=== PATIENT | female | born 1955 | race Caucasian/White ===

== ENCOUNTER 2022-11-13 11:13 | Outpatient (OUT) | payer MEDICARE, OTHER, SELFPAY ==
--- NOTE | 2022-11-13 11:27 | XR_ITS ---
The [address] [address] Patient Name: LILIANA NESBITT MRN: [id number] date: 1955 Sex: F Assigned Patient Location: [facility] Current Patient Location: [facility] Accession/Order Number: [id number] Exam Date: 11/13/2022 11:32 Report Date: 11/13/2022 13:02 At the request of: DESTINY BLANCO Procedure: XR knee RT 4V PROCEDURE: XR knee RT 4V HISTORY: Right Knee Pain M25.561 ; acute right knee pain following injury COMPARISON: None. FINDINGS: BONES:Mild narrowing of the medial and anterior joint spaces. Degenerative osteophytes along the articular margins of all 3 compartments. No fracture, dislocation, bone lesion. SOFT TISSUES:No visible soft tissue swelling. EFFUSION:None visible. OTHER: Negative. XR/XR knee RT 4V IMPRESSION: 1. No acute bone abnormality or joint effusion. 2. Mild/moderate degenerative joint disease. Electronically authenticated by: ALINE PATHAK Date: 11/13/2022 13:02
== END 2022-11-13 11:14 | disposition home or self-care (01) ==
LOC: RAD 11:20
PROVIDERS: PCP Family Medicine; Visit Provider Family Medicine
DX: M25.561 Pain in right knee (principal)
CPT/HCPCS: 73564

== ENCOUNTER 2023-05-04 14:00 | Outpatient (OUT) | payer MEDICARE, OTHER, SELFPAY | END 2023-05-04 14:01 | disposition home or self-care (01) | LOC: LAB 14:02 | PROVIDERS: PCP Family Medicine; Visit Provider Family Medicine | DX: R30.0 Dysuria (principal) | CPT/HCPCS: 87086; 87150; 87186 ==

== ENCOUNTER 2024-10-18 14:17 | Outpatient (OUT) | payer MEDICARE, OTHER, SELFPAY ==
--- NOTE | 2024-10-18 14:24 | XR_ITS ---
The [place] [id number] Patient Name: LILIANA NESBITT MRN: [id number] date: 1955 Sex: F Assigned Patient Location: [facility] Current Patient Location: [facility] Accession/Order Number: [id number] Exam Date: 10/18/2024 17:36 Report Date: 10/18/2024 17:38 At the request of: DESTINY BLANCO MD Procedure: XR lumbar spine 2-3V 3 views Lumbar Spine HISTORY: Lumbar pain for 3 days. No injury COMPARISON: None POSTSURGICAL CHANGES: None BONY ALIGNMENT: Adequate HYPERMOBILITY:No bending imaging. LISTHESIS:4 mm L4-5 anterolisthesis FRACTURE: None DEGENERATIVE CHANGES: Spondylosis greatest at the L5-S1 level. Extensive lower lumbar facet degeneration SOFT TISSUES: Atherosclerosis BONY MINERALIZATION:Decreased XR/XR lumbar spine 2-3V IMPRESSION: Extensive degeneration greatest in the lower lumbar facets. Impression dictated by: Phillip Guaman M.D. 10/18/2024 5:38 PM Dictation Location[facility] Electronically authenticated by: [id number] Y Date: 10/18/2024 17:38
== END 2024-10-18 14:18 | disposition home or self-care (01) ==
LOC: RAD 14:19
PROVIDERS: PCP Family Medicine; Visit Provider Family Medicine
DX: M54.50 Low back pain, unspecified (principal); M47.816 Spondylosis without myelopathy or radiculopathy, lumbar region; M51.369 Other intervertebral disc degeneration, lumbar region without mention of lumbar back pain or lower extremity pain
CPT/HCPCS: 72100

== ENCOUNTER 2025-02-08 09:53 | Outpatient (OUT) | payer MEDICARE, OTHER, SELFPAY ==
--- OUTSIDE RECORDS SUMMARY | 2025-02-03 19:07 | XMS_ITS | Continuity of Care Document ---
Author Organization [facility] Address [address] [place] [address] Phone Care Team Providers Care Locum Tenens Name Role Phone Margaret Bhandari MD Primary Care Provider Margaret Bhandari MD Attending Provider [phone] Community, Outreach Attending Provider [phone] Care Teams Patient Care Team Team Status: Active Member Role/Relationship Status Dates Margaret Bhandari MD Primary Care Provider Active Visit Care Team Team Status: Inactive Member Role/Relationship Status Dates Margaret Bhandari MD Primary Care Provider Active Start: December 19, 2024 End: December 19, 2024Jaiden Nichols ProviderActiveStart: December 19, 2024 End: December 19, 2024 Visit Care Team Team Status: Inactive Member Role/Relationship Status Dates Margaret Bhandari MD Primary Care Provider Active Start: January 02, 2025 End: January 02, 2025Jaiden Nichols ProviderActiveStart: January 02, 2025 End: January 02, 2025 Visit Care Team Team Status: Inactive Member Role/Relationship Status Dates Margaret Bhandari MD Primary Care Provider Active Start: January 14, 2025 End: January 14, 2025Outremoises CommunityAttending ProviderActiveStart: January 14, 2025 End: January 14, 2025 Visit Care Team Team Status: Inactive Member Role/Relationship Status Dates Margaret Bhandari MD Primary Care Provider Active Start: January 20, 2025 End: January 20, 2025Margaret Bhandari MDAttending ProviderActiveStart: January 20, 2025 End: January 20, 2025 Visit Care Team Team Status: Inactive Member Role/Relationship Status Dates Margaret Bhandari MD Primary Care Provider Active Start: February 03, 2025 End: February 03, 2025Jaiden Nichols ProviderActiveStart: February 03, 2025 End: February 03, 2025 Chief Complaint and Reason for Visit Chief Complaint Admit Date Give sample for poss UTI December 19, 025 9:48am Z12.31 January 02, 2025 3 :34pm CBC January 14, 2025 7:54am Wellness January 20, 2025 9:24am R10.13 N32.81 N81.9 February 03, 2025 1 0:28am Reason for Visit Admit Date Dysuria December 19, 2024 9 :48am Epigastric abdominal pain January 20, 2025 9:24am Medicare annual wellness visit, subseque nt January 20, 2025 9:24am Overactive bladder due to prolapse of fe male genital organ January 20, 2025 9:24am Allergies, Adverse Reactions, Alerts Allergen Type Severity Reaction Last Updated Verified Status Comments Iodinated Contrast Media Allergy Unknown Unknown Reaction January 20, 2025 9:46am Yes Active Onset Date: 06/01/2014 Sulfa (Sulfonamide Antibiotics) Allergy Unknown stomach upset January 20, 2025 9:46am Yes Active Social History Smoking Status Status Start Date End Date Date of Observa tion Never smoked tobacco (finding) February 25, 2023 10:13am Observation Status Observation Response Date of Response Legal Sex Female (finding) [facility] 1955 Family History Relationship Condition Age at Onset Recorded Date/T fatuma father Heart disease Unknown DeceasedUnknownmotherMalignant neoplasmUnknown Problems Active Problems Problem Diagnosis/Recorded Date Onset Date Stat us Eyelid abnormality March 31, 2024 2:35pm Unknown Active Overactive bladder due to pr olapse of female genital organ January 20, 2025 10:16am Unknown Active Medicare annual wellness vis it, subsequent January 24, 2025 4:07pm Unknown Active Primary osteoarthritis of right hip April 22 10:42am Unknown Active Screening mammogram for breast cancer December 09 8:05am Unknown Active Ovarian cyst April 22, 2023 10:42am Unknown Active Hearing loss June 08, 2024 10:11am Unknown Acti ve Chronic insomnia August 17, 2023 3:42pm Unknown A ctive Mass of both axillae April 23, 2023 11:48am Unkno wn Active Dysuria May 04, 2023 1:38pm Unknown Activ e Epigastric abdominal pain January 20, 2025 10:14am Unknown Active Acute lumbar back pain October 18, 2024 12:46pm Unkno wn Active Breast mass, right August 31, 2023 9:18am Unknown Active Inactive/Resolved Problems Problem Diagnosis/Recorded Date Onset Date Stat us Sinusitis, acute maxillary August 17, 2023 3:42pm Unkn own Resolved Medications Medication Status Dose Units Route Directions Qty Days Refills S tart Date Stop Date End Date Reason(s) Instructions Adherence Cefdinir 300 mg capsule Discontinued 300 MG PO Twice daily 20 10 0 May 07, 2023 12:00am August 17, 2023 12:52pmCiprofloxacin Hcl 250 mg uuyxsuHeddbsylykca646FPYCAjzgj qmhhg089Tmvjqiqa 2023 12:00amMah 2023 8:48amMethylprednisolone 4 mg tablets,dose owlgTdwjalsjospa7QAwgj package rhvajfggbw658Opuae 2024 10:08am October 18, 2024 12:26pmPO PER PKG DIR for 6 daysCiprofloxacin Hcl 250 mg iehhngBwiyynuidzow430COMFWvuun hkmsk243Sypobzu 2024 11:00pmNovember 2024 9:46amNo Name (No Known Home Meds)ActiveNov2024 12:00am Azithromycin 250 mg ggpmknYzjowdrfvhjt3CO.HQEMTZB91Jpmu 2023 11:00pm March 31, 2024 10:31amFor 250 mg dose pack: take 500 mg today (day 1), then 250 mg for 4 days (days 2-5) POPhentermine 37.5 mg zxyrsmWgraqfgdjjsq97.5MGPO DailyJanuary 2024 12:00amAugust 2024 12:26pmmust administer 30 minutes before or 1-2 hours after breakfastMethylprednisolone 4 mg tablets,dose hljoFvudseyrfzav2CVgih package rpaocrawxd491Rpdohbw 2024 12:00amApril 2024 9:59amPO PER PKG DIR for 6 daysPrednisone 20 mg srxaxpWqapcybnpouu26XWPS Twice zdtyw104Gykafb 2024 11:00pmNov2024 9:46am Procedures Procedure Date Performed Status MM screening mammo BI w/CAD January 02, 2025 3 :37pm completed CT abdomen pelvis wo con February 03, 2025 10:3 3am completed Relevant Diagnostic Tests and/or Laboratory Data Laboratory Results Test Collection Date/Time Result Date/Time Result Interpretation Reference Range Result Comment Performing Site Urine Color December 19, 2024 9:16am December 19, 2024 9 :20am yellow Urine AppearanceOct2024 9:16amOct2024 9:20amclearUrine Specific GravityOct2024 9:16amOct2024 9:20am1.000Urine pH December 19, 2024 9:16amOct2024 9:38zg2Dgbki Leukocyte Esterase December 19, 2024 9:16amOct2024 9:20am++Urine NitriteOct2024 9:16amOct2024 9:20amNegativeUrine ProteinOct2024 9:16amOctober 2024 9:20amnegativeUrine Glucose (UA)December 19, 2024 9:16amOct2024 9:20amnegativeUrine KetonesOct2024 9:16am December 19, 2024 9:20amnegativeUrine UrobilinogenOct2024 9:16am December 19, 2024 9:20am0.2Urine BilirubinOct2024 9:16amOct2024 9:20amnegativeUrine Occult BloodOct2024 9:16amOct2024 9:20amnegativeCorrected White Blood CountJanuary 14, 2025 7:50am January 14, 2025 11:07am5.4 10*3/uL3.8-11.6F[facility] [id number] [address] [place] [address]Ogb Blood CountJanuary 14, 2025 7:50amNove2024 11:07am4.82 10*6/uL3.60-5.00[facility] [id number] [address] [facility] [address]XassmsvlftGeassimh 2024 7:50amNovember 2024 11:07am 13.0 g/dL11.8-15.4FSub[facility] [id number] [address] [facility] [address]TirdadnnuuHxcyuuqv 2024 7:50amNoveer 2024 11:07am 40.3 %34.0-46.4FSub[facility] [id number] [address] [facility] [address]Tvfw Corpuscular VolumeNovember 2024 7:50amNovember 2024 11:07am83.5 bT55-828WvckqdytuCincinnati Va [facility] [id number] [address] [facility] [address]Lbyb Corpuscular HemoglobinNovember 2024 7:50amNovember 2024 11:07am27.0 pg24.7-34.3FSub[facility] [id number] [address] [place] [address]Nhtl Corpuscular Hemoglobin ConcentNovember 2024 7:50am January 14, 2025 11:07am32.3 g/dL32.0-35.0[facility] [id number] [address] [facility] [address]Gkm Cell Distribution WidthNov2024 7:50amNove2024 11:07am15.5 %Above high gyxlhn67.9-15.3FSub[facility] [id number] [address] [facility] [address]Lhyslqqh CountNovember 2024 7:50amNove2024 11:20pr712 10*3/yF194-685KepsalsmfCincinnati [facility] [id number] [address] [place] [address]Nwwr Platelet VolumeNovember 2024 7:50amNove2024 11:07am7.5 fL6.3-10.7FSub[facility] [id number] [address] [facility] [address]Nfjzdch LevelNovember 2024 7:50amNove2024 11:13am99 mg/aJ14-101POY recommended reference rangeRandom Glucose Reference Range is dependent on time and content of last meal. Glucose of more than 200 mg/dL in a nonstressed, ambulatory subject supports the diagnosisof Diabetes Mellitus.[facility] [id number] [address] [facility] [address]Tqtdb Urea NitrogenNovember 2024 7:50amNove2024 11:13am13 mg/dL7-25[facility] [id number] [address] [facility] [address]FmaofdmuyrFoiimcvj 15th, 2025 7:50amNove2024 11:13am 0.82 mg/dL0.60-1.20[facility] [id number] [address] [facility] [address]Jgulkxbxz GFR (CKD-EPI)January 14, 2025 7:50amNove2024 11:13am> 60.0 mL/MinCincinnati Va Medical Center [facility]tr [id number] [address] [facility] [address]Nvbwyt LevelNov2024 7:50amNovember 2024 11:06qc322 mmol/B785-215YszrqqmubCincinnati Va [facility] [id number] [address] [facility] [address]Xjmfbzdeb LevelNov2024 7:50amNove2024 11:13am4.6 mmol/L3.5-5.1FSub[facility] [id number] [address] [facility] [address]Waihzlvl LevelNov2024 7:50amNove2024 11:38sy787 mmol/G40-984LwtmvzvspCincinnati Va [facility] [id number] [address] [place] [address]87[address]Carbon Dioxide LevelNov2024 7:50amNove2024 11:13am28.9 mmol/L21.0-31.0[facility] [id number] [address] [facility] [address]Hftnh GapNovember 2024 7:50amNovember 2024 11:13am 9.7 mEq/L6.0-15.0[facility] [id number] [address] [facility] [address]Apovvkl LevelNovember 2024 7:50amNovemb2024 11:13am8.9 mg/dL8.6-10.3FSub[facility] [id number] [address] [facility] 17[address]Yadmj ProteinNovember 2024 7:50amNove2024 11:13am7.0 g/dL6.4-8.9[facility] [id number] [address] [facility] 12[address]XnmwsylTpbgolri 2024 7:50amNovember 2024 11:13am4.3 g/dL3.5-5.7FSub[facility] [id number] [address] [place] [address] 38[address]Ecqwp BilirubinNov2024 7:50amNove2024 11:13am0.4 mg/dL0.3-1.0[facility] [id number] [address] [facility] [address]Wfmhbzqra Amino Transf (AST/SGOT)January 14, 2025 7:50am January 14, 2025 11:13am30 U/S86-97AbcpnqdesCincinnati Va [facility] [id number] [address] [place] [address] 99432Wqyvrno Aminotransferase (ALT/SGPT)January 14, 2025 7:50am January 14, 2025 11:13am27 U/L7-52[facility] [id number] [address] [place] [address] 66644Jdgnatsr PhosphataseJanuary 14, 2025 7:50amNovemb2024 11:13am76 U/L91-472ReqaboxkvCincinnati Va [facility] Center [facility] [id number] [address] [place] [address] 64[address]Wxsrlbufzig LevelNov2024 7:50amNove2024 11:27hs236 mg/dLAbove high culbci797-490Jwad less than 200 mg/dl low riskChol 201-239 mg/dl borderline riskChol 240 mg/dl and greater high riskCincinnati Va Medical Center [facility]tr [id number] [address] [facility] [address]AFK CholesterolNovember 2024 7:50amNovemb2024 11:13am39 mg/uI09-04SFZ CHOL ATP-III CLASSIFICATION Cardiovascular RiskHDL > or equal to 60 mg/dL LOWHDL < 40 mg/dL HIGHCincinnati Va Medical Center Ctr [id number] [address] [facility] [address]Khjzpgoslcpwn ReflexNov2024 7:50amNove2024 11:63fi034 mg/dLAbove high normal0-149TRIG ATP III CLASSIFICATIONTRIG less than 150 mg/dL NormalTRIG 150-199 mg/dL Borderline highTRIG 200-500 mg/dL High TRIG greater than 500 mg/dL Very highStandard traceable to the Center for Disease Conrtrol and Prevention (CDC) test method.[facility] [id number] [address] [facility] [address]HDY Cholesterol, CalculatedNov2024 7:50amNove2024 11:54lj094 mg/dLAbove high normal0-100LDL ATP III CLASSIFICATIONLDL less than 100 mg/dL OptimalLDL 100-129 mg/dL Near or above uzgaqbnXYS837-381 mg/dL Borderline highLDL 160-189 mg/dL HighLDL greater than 189 mg/dL Very high [facility] [id number] [address] [facility] 29893ULRV CholesterolNov2024 7:50amNove2024 11:13am33 mg/dLCincinnati Va Medical Center Ctr [id number] [address] [facility] [address]Xnpyekrwqan/HDL RatioNove2024 7:50amN2024 11:13am5.6<5.0[facility] [id number] [address] [facility] 808[address]Rtijannn Creatinine Clearance (ChemNovember 2024 7:50am January 14, 2025 11:13[facility] [id number] [address] [place] [address] Diagnostic Imaging Reports Author Oli Friend [facility] HospitalReport Date/TimeDece2024 12:17pm [facility] [place] [address] [place] [address] Scan Report Signed Patient: Yohana Jacob MR#: [id number] : 1955 Acct:[id number] Age/Sex: 69 / F ADM Date: Loc: CT Room: Type: [facility] Attending Dr: Margaret Bhandari MD Copies to: Margaret Bhandari MD~ Ordering Provider: Margaret Bhandari MD Date of Service: 02/03/25 CT/CT abdomen pelvis wo con: R10.13 - Epigastric pain CT ABDOMEN AND PELVIS WITHOUT INTRAVENOUS CONTRAST: CLINICAL HISTORY: Mid upper abdominal pain for 2 months. COMPARISON: None TECHNIQUE: Spiral images were obtained through the abdomen and pelvis without intravenous contrast.This CT exam was performed using one or more following dose reduction techniques: Automated exposure control, adjustment of the mA and/or kV according to patient size, or use of iterative reconstruction technique. FINDINGS: Lung Bases: [Bibasilar scarring.] Organs:Suboptimal evaluation due to lack of IV contrast. Hepatic steatosis. Gallbladder pancreas spleen adrenal glands all appear unremarkable. Cystic changes involving the kidneys. Aorta appears normal in caliber. GI: Small hiatal hernia. Distal stomach is grossly unremarkable. Duodenal diverticulum. Small bowelappears nondilated. Appendix is normal. Acute colonic abnormality.[ Pelvis:[Suboptimal evaluation due to streak hardware artifact from the patient's right hip prosthesis. There appears be a 9 mm layering calculus involving the urinary bladder. Uterus has been removed.] Peritoneum/Retroperitoneum:No free air or free fluid or lymphadenopathy.[ Abd wall/Bones:Abdominal wall demonstrate no acute findings. Osseous structures demonstrate degenerative change.[ CT/CT abdomen pelvis wo con IMPRESSION: No acute process. Suspected 9 mm calculus involving the urinary bladder. Small hiatal hernia. Impression dictated by: Oli Friend Jr., D.OGhassan 02/03/2025 12:17 PM Dictation Location: RADIO-PC-22 Transcribed By: MARYLU 02/03/25 1217 Dictated By: Oli Friend Jr, DO 02/03/25 1214 Signed By: <Electronically signed by Oli Friend Jr, DO in OV> 02/03/25 1217 Vital Signs Vital Reading Result Reference Range Collection Date/Time Height 69 [in_i] January 20, 2025 9:76ifNxkwzm75.55 kgJanuary 20, 2025 9:46amHeart Rate75 /tqb34-223NtxmlkikJanuary 20, 2025 9:46amRespiratory rate14 /ffx36-30AjgyuqbnJanuary 20, 2025 9:46amOxygen saturation by Pulse fnsbrufd31 %95-100January 20, 2025 9:46amBP Dzxtjrng444 mm[Hg]100-140January 20, 2025 9:46amBP Gdknvikrb60 mm[Hg]60-100January 20, 2025 9:46amBMI (Body Mass Index)26.9 kg/x4BhzxypgiJanuary 20, 2025 9:46am Advance Directives Advance Directive Response Recorded Date/ Time Advance Directives No March 23, 2023 12:04pm Insurance Providers Guarantor Yohana Jacob Address [address] [address]Uyenkmx Info.Home Phone: Payer Group Member ID Coverage Type Subscriber Relationship to Subscriber Effective Date Expiration Date Adalberto ALFARO/ROSHAN Retired Id: [id number] L Polley Id: [id number] [address] [place] [address] Home Phone: Email: .[employer] [id number] L Polley Id: [id number] [address] [place] [address] Home Phone: Email: .[employer] [place] Id: [place] [id number] L Polley Id: [id number] [address] [place] [address] Home Phone: Email: .comSelf Encounters Encounter Location(s) Arrival/Admit Date Discharge/Departure Date Discharge/Departure Disposition Provider(s) Departed Physician/ Provider Office Visit -[facility] December 19, 2024 9:48am December 19, 2024 10:51am Discharged to home care or self care (routine discharge) Margaret Bhandari MD [facility]arted [facility] January 02, 2025 3:34pm January 02, 2025 3:35pm Discharged to home care or self care (routine discharge) Margaret Bhandari MD Departed Referred -[facility] January 14, 2025 7:54am January 14, 2025 7:55am Discharged to home care or self care (routine discharge) [facility] Departed Physician/ Provider Office Visit -[facility] January 20, 2025 9:24am January 20, 2025 10:16am Discharged to home care or self care (routine discharge) Margaret Bhandari MD Departed Clinical -CT Scan [facility] February 03, 2025 10:28am February 03, 2025 10:29am Discharged to home care or self care (routine discharge) Margaret Bhandari MD Recent Diagnosis Onset Date Admit Date Dysuria Unknown December 19 9:48am Epigastric abdominal pain Unknown Novemb er 2024 9:24am Medicare annual wellness visit, subsequent Unkno wn January 20, 2025 9:24am Overactive bladder due to pr olapse of female genital organ Unknown January 20, 2025 9:24am Assessments Diagnosis Onset Date Resolution Status Admit Date Dysuria acuteOctober 2024 9:48amEpigastric abdominal painacuteNovember 2024 9:24amMedicare annual wellness visit, subsequentacuteNovember 2024 9:24am Overactive bladder due to prolapse of female genital organacuteNov2024 9:24am Plan of Treatment Author Margaret Bhandari [facility] HospitalAuthoredOctober 2024 9:26amcipro sent to pharmacy Author Margaret Bhandari [facility]2024 4:09pmCheck CT abd/pelvis. Assess breathing issue and bladder prolapse as above Personalized health advice was given to the beneficiary to health education of preventative counseling services or programs aimed at reducing identified risk factors and improving self-management or community-based lifestyle interventions to reduce health risks and promote self-management and wellness, including physical activity and nutrition. Future Tests Future scheduled test information is unavailable Pending Tests Pending diagnostic test information is unavailable Future Visits Future appointment information is unavailable Future Procedures Future procedure information is unavailable Future Medications Future medication information is unavailable Patient Instructions Patient instructions are unavailable
--- OUTSIDE RECORDS SUMMARY | 2025-02-08 10:03 | XMS_ITS | CCD ---
Author Organization [facility] CliniSyco Care Team Providers Care Seaweed Harvester Name Role Phone BELLA, DR MARGARET Mcdonough Primary Care Unavailable REQUEST, DR JARQUIN LISTED Attending Unavaila ble REQUEST, DR JARQUIN LISTED Consulting Unavaila ble REQUEST, DR JARQUIN LISTED Admitting Unavaila ble BLANCO, DR MARGARET Mcdonough Attending Unavailable BLANCO, DR MARGARET Mcdonough Primary Care Unavailable WEST, DR RACH Bojorquez Consulting Unavailable BLANCO, DR MARGARET Mcdonough Admitting Unavailable BLANCO, DR MARGARET Mcdonough Consulting Unavailable BLANCO, DR MARGARET Mcdonough Attending Unavailable BLANCO, DR MARGARET Mcdonough Consulting Unavailable BLANCO, DR MARGARET Mcdonough Primary Care Unavailable BLANCO, DR MARGARET Mcdonough Admitting Unavailable Margaret Blanco Unavailable MD Margaret Blanco Primary Care Provider MD Margaret Blanco Attending Provider [phone] MD Margaret Blanco Referring Provider [phone] Pocphilip, Rach Macias Referring Unavailable Pocos, Rach Macias Admitting Unavailable Pocos, Rach Macias Attending Unavailable Pocos, Rach Macias Referring Unavailable Pocos, Rach Macias Admitting Unavailable Pocos, Rach Macias Attending Unavailable Margaret Blanco MD Primary Care Provider MD Margaret Blanco Primary Care Provider MD Margaret Blanco Attending Provider Margaret Blanco MD Primary Care Provider [phone] PETMARY AMARO Attending Unavailable PETITTI, MARY Macias Attending Unavailable MARY RUSSELL Attending Unavailable POCOS, RACH Macias Attending Unavailable POCPHILIP, RACH Macias Referring Unavailable Margaret Blanco MD Primary Care Provider Margaret Blanco MD Attending Provider Margaret Blanco MD Primary Care Provider Margaret Blanco MD Attending Provider [phone] Margaret Blanco Attending Unavailable Margaret Blanco Primary Care Unavailable Margaret Blanco Admitting Unavailable Allergies Allergy ClassificationReported Allergen(s)Allergy TypeDate of OnsetReaction(s) Facility (1 source)Iodine (And Iodine Containting Drugs)Drug allergy (disorder)08-17-2012 [facility] Repository (8 sources)Propoxyphene; Translations: [Darvon]Drug Wpqhgui98-37-9117YRBTLFNze [facility] Repository (1 source)Sulfonamides (Antibiotic)Drug allergy (disorder)[facility] Repository (20 sources)Iodinated contrast media (substance)Drug boxcggg70-60-3866Cgmepal [facility] (6 sources)Substance with sulfonamide structure and antibacterial mechanism of action (substance)Drug allergyAdventHealth for Children Valuation App Other (1 source)Contrast media; Translations: [Contrast Dye]Propensity to adverse reactions (disorder)[facility] Repository (1 source)Sulfonamides (Antibiotic); Translations: [sulfa drugs]Propensity to adverse reactions (disorder)[facility] Repository (14 sources)IodineDrug Glthjof79-88-2964[facility] (14 sources)PropoxypheneDrug Fgnorbo41-75-2604EyullNIXX Healthcare (14 sources)Sulfamethoxazole / TrimethoprimDrug Siauvur98-18-5363XTFW [facility] (14 sources)OtherPropensity to adverse pjqgcksxy14-52-9252FOHC [facility] (6 sources)Sulfonamides (Antibiotic); Translations: [Sulfa (Sulfonamide Antibiotics)]Allergy to lqyhaxnow62-17-0404tkgloylOhioHealth [facility] (6 sources)Iodinated Contrast Media; Translations: [Iodinated Contrast Media] Allergy to hbavoetrc21-49-6890PnxtkvpMetroHealth [facility] Comment on above:Onset Date: 06/01/2014 Medications Current Medications MedicationDrug Class(es)DatesSig (Normalized)Sig (Original)ciprofloxacin 250 mg oral tablet (9 sources)Quinolone AntimicrobialStart: 12-02-6384gxrn 1 tablet by mouth twice dailyStart: 04-29-2023 End: 45-32-4450hlco 1 tablet by mouth twice dailyCiprofloxacin Hcl 250 mg tablet Discontinued 250 MG PO Twice daily 14 0 April 29, 2023 12:00amMarch 2023 8:48amStart: 49-29-3747txlm 1 tablet by mouth every twelve hours Ciprofloxacin HCl 250 MG 1 tablet Orally every 12 hrs for 5 day(s) Apr, ActivepredniSONE 20 mg oral tablet (3 sources)Start: 66-37-2288obra 1 tablet by mouth twice dailytacrolimus 0.001 mg/mg topical ointment (3 sources)Calcineurin Inhibitor ImmunosuppressantStart: 07-07-2024 End: 60-97-2776xtaqtbrwig (Protopic) 0.1 % ointment Indications: Other atopic dermatitis Apply to affected areas on the face, twice a day when flared, 30 day supply 30 g 07/07/2024 08/03/2024 DiscontinuedvalACYclovir 1000 mg oral tablet (5 sources)Herpesvirus Nucleoside Analog DNA Polymerase Inhibitor, Herpes Simplex Virus Nucleoside Analog DNA Polymerase Inhibitor, Herpes Zoster Virus Nucleoside Analog DNA Polymerase InhibitorStart: 99-07-6368nmfIPLmmviov (Valtrex) 1 g tablet Indications: Herpesviral vesicular dermatitis Take 2 tablets twice a day x 1 day at first start of outbreak, 1 day supply 4 tablet 4 06/28/2024 Active Completed/Discontinued Medications MedicationDrug Class(es)DatesSig (Normalized)Sig (Original)aspirin 81 mg delayed release oral tablet (2 sources)Platelet Aggregation Inhibitor, Nonsteroidal Anti-inflammatory Drug Start: 12-30-2022 End: 15-44-1335krbd 1 tablet by mouth in the morningAspirin Low Dose 81 MG EC tablet Take 81 mg by mouth in the morning and 81 mg before bedtime. 0 12/30/2022 04/01/2023 Discontinued (Therapy completed)azithromycin 250 mg oral tablet (5 sources)Macrolide AntimicrobialStart: 08-17-2023 End: 78-28-5002Fchanmfnygve 250 mg tablet Discontinued 0 PO .COMPLEX 6 0 August 16, 2023 11:00pm March 31, 2024 10:31am For 250 mg dose pack: take 500 mg today (day 1), then 250 mg for 4 days (days 2-5) POStart: 50-67-0454Shacdbfpbfto Active 0 PO .COMPLEX 6 August 17, 2023 12:00am For 250 mg dose pack: take 500 mg today(day 1), then 250 mg for 4 days (days 2-5) POcefadroxil 500 mg oral capsule (2 sources)Cephalosporin AntibacterialStart: 12-30-2022 End: 15-28-4231lvga 1 capsule by mouth every twelve hourscefadroxil (Duricef) 500 MG capsule TAKE 1 CAPSULE BY MOUTH EVERY 12 HOURS FOR 2 DAYS 0 12/30/2022 0 04/01/2023 Discontinued (Therapy completed)cefdinir 300 mg oral capsule (6 sources)Cephalosporin AntibacterialStart: 05-07-2023 End: 84-86-7825brua 1 capsule by mouth twice dailyCefdinir 300 mg capsule Discontinued 300 MG PO Twice daily 20 10 May 07, 2023 12:00am August 17, 2023 12:52pmStart: 36-31-8960Dnzzperl 300 MG as directed Orally bid for 7 days Apr, Activedocusate sodium 100 mg oral capsule (2 sources)Start: 12-30-2022 End: 53-32-1321xpbk 1 capsule by mouth twice daily as needed for constipation docusate sodium (Colace) 100 MG capsule TAKE 1 CAPSULE BY MOUTH TWICE DAILY NEEDED FOR CONSTIPATION 0 12/30/2022 04/01/2023 Discontinued (Therapy completed) methylPREDNISolone 4 mg oral tablet (8 sources)CorticosteroidStart: 03-31-2024 End: 28-98-6994Zgyqhtsqvjjwtlgmpg 4 mg tablets,dose pack Discontinued 0 PO per package directions 21 0 June 08, 2024 10:08am October 18, 2024 12:26pm PO PER PKG DIR for 6 daysphentermine hydrochloride 37.5 mg oral tablet (15 sources)Sympathomimetic Amine AnorecticStart: 12-09-2023 End: 80-55-6653noke 1 tablet by mouth once daily 30 minutes after breakfast Phentermine 37.5 mg tablet Discontinued 37.5 MG PO Daily March 31, 2024 12:00am October 18, 2024 12:26pm must administer 30 minutes before or 1-2 hours after breakfast Problems Active Problems Problem ClassificationProblemDateDocumented DateEpisodic/ChronicAllergic reactions (4 sources)Irritant contact dermatitis; Translations: [Irritant contact dermatitis due to other agents]27-66-6017QgarvrjhAppurirqucmpo symptoms and ill- defined conditions (9 sources)Dysuria; Translations: [Dysuria]EpisodicMiscellaneous mental health disorders (6 sources)Chronic insomnia; Translations: [Psychophysiologic insomnia] 37-84-3190CznfurmSqfpqvoqbxdd breast conditions (5 sources)Breast lump; Translations: [Unspecified lump in the right breast, unspecified quadrant]94-28-9915TslyaoytRqaoalrvdcvggm (13 sources)Osteoarthritis of right hip joint; Translations: [Unilateral primary osteoarthritis, right hip]23-27-3230OtrltqmGfjut and unspecified benign neoplasm (2 sources)Skin lesion; Translations: [Hemangioma of skin and subcutaneous tissue]32-00-9888JlkcyvytUpzht connective tissue disease (4 sources)Hip joint prosthesis present; Translations: [Presence of right artificial hip joint]84-63-8317FucjrkyNkhet ear and sense organ disorders (4 sources)Hearing loss; Translations: [Unspecified hearing loss, unspecified ear]36-51-5365XuueixtElodk ear and sense organ disorders (1 source)Unspecified hearing loss, unspecified ear; Translations: [Unspecified hearing loss]86-34-5664UmfqmxvHembe eye disorders (4 sources)Disorder of eyelid; Translations: [Unspecified disorder of eyelid] 97-44-8162FbynukkfEaktv eye disorders (1 source)Unspecified disorder of eyelid; Translations: [Unspecified disorder of eyelid]52-54-0679JhhyrxqjWjxxw non-epithelial cancer of skin (2 sources)History of squamous cell carcinoma of skin; Translations: [Personal history of other malignant neoplasm of skin]38-10-9862GgurpcunNctwu non- traumatic joint disorders (1 source)Pain in right kneeEpisodicOther screening for suspected conditions (not mental disorders or infectious disease) (7 sources)Encounter for screening mammogram for malignant neoplasm of breast; Translations: [Patient encounter status]Onset: 74-73-4819AxoiegqrCyxuk skin disorders (2 sources)Localized swelling, mass and lump, right upper limbEpisodicOther skin disorders (17 sources)Localized swelling, mass and lump, upper limb, bilateral; Translations: [Mass of both axillae]Onset: 920323-22-4110JvvccuvyQrkoe skin disorders (4 sources)Inflamed seborrheic keratosis; Translations: [Inflamed seborrheic keratosis]83-33-4557JsgqbqheTszvk skin disorders (2 sources)Lentiginosis; Translations: [Other melanin hyperpigmentation] 00-03-5032RgfbtuvgUsnph skin disorders (4 sources)Seborrheic keratosis; Translations: [Other seborrheic keratosis] 77-11-1770JvfyljieKdimp upper respiratory infections (6 sources)Acute maxillary sinusitis; Translations: [Acute maxillary sinusitis, unspecified]91-03-3312KqzpizmsWchuorn cyst (5 sources)Cyst of ovary; Translations: [Unspecified ovarian cyst, unspecified side]80-73-7875HhyahmsdJrbaiaxksr and visceral atherosclerosis (6 sources)Vascular calcification; Translations: [Unspecified atherosclerosis] ChronicSpondylosis; intervertebral disc disorders; other back problems (6 sources)Acute low back pain; Translations: [Acute low back pain]10-18-2024 EpisodicViral infection (2 sources)Herpesviral vesicular dermatitis; Translations: [Herpesviral vesicular dermatitis]92-79-8933Spuewufx Past or Other Problems Problem ClassificationProblemDateDocumented DateEpisodic/ChronicOther bone disease and musculoskeletal deformities (1 source)Other specified disorders of bone density and structure, other site; Translations: [OTH D/O BONE DEN STRUCT OTH SITE]Onset: 30-39-1102Gejjisrk Residual codes; unclassified (1 source)Asymptomatic menopausal state; Translations: [ASYMPTOMATIC MENOPAUSAL STATE]Onset: 30-91-8732Sqskrynm Results Test NameValueInterpretationReference RangeFacilityMM screening mammo BI w/CADon 94-30-4328DL screening mammo BI w/[facility] [address] [place] [address] Mammography Report Signed Patient: Liliana Nesbitt MR#: [id number] : 1955 Acct:[id number] Age/Sex: 69 / F Adm Date: 01/02/25 Loc: MD Room: Type: REG CLI Attending Dr: Margaret Blanco MD Ordering Provider: Margaret Blanco MD Date of Service: 01/02/25 Procedure(s): MM screening mammo BI w/CAD Accession Number(s): ([id number]) MM/MM screening mammo BI w/CAD: Z12.31 Copies to: Margaret Blanco MD CLINICAL DATA: Screening for malignancy. SCREENING MAMMOGRAM - FULL FIELD DIGITAL WITH TOMOSYNTHESIS AND CAD COMPARISON:Dating back to 2021 Tomosynthesis craniocaudal and mediolateral oblique views of both breasts were obtained using low- dose digital technique. This examination was reviewed with the aid of CAD. The breast tissue is composed of scattered fibroglandular densities. There are no dominant masses, typically malignant calcifications or architectural distortion. There has been no significant interval change. MM/MM screening mammo BI w/CAD IMPRESSION: NO MAMMOGRAPHIC EVIDENCE OF MALIGNANCY. ROUTINE FOLLOW-UP IS RECOMMENDED IN ONE YEAR. RESULT CODE: 1 Negative DENSITY CODE: 2 (approximately 25-50% glandular) There are scattered areas of fibroglandular density. FOLLOW UP: 1YR The false-negative rate of mammography is approximately 10-percent. Management of a palpable abnormality must be based on clinical grounds. Patient was entered into a reminder system with a target due date for the next mammogram. Impression dictated by: Caleb Yang M.D. 01/02/2025 4:31 PM Dictation Location: [facility] Dictated By: Caleb Yang MD 01/02/25 1629 Signed By: 01/02/[address] [place] [address] Physician GroupMammography reportOrdered By: Caleb Yang on 39-24-1337Tyainayjef imaging study [facility] [address] [place] [address] Mammography Report Signed Patient: Liliana Nesbitt MR#: [id number] : 1955 Acct:[id number] Age/Sex: 69 / F Adm Date: 5 Loc: MD Room: Type: REG CLI Attending Dr: Margaret Blanco MD Ordering Provider: Margaret Blanco MD Date of Service: 01/02/25 Procedure(s): MM screening mammo BI w/CAD Accession Number(s): ([id number]) MM/MM screening mammo BI w/CAD: Z12.31 Copies to: Margaret Blanco MD~ CLINICAL DATA: Screening for malignancy. SCREENING MAMMOGRAM - FULL FIELD DIGITAL WITH TOMOSYNTHESIS AND CAD COMPARISON:Dating back to 2021 Tomosynthesis craniocaudal and mediolateral oblique views of both breasts were obtained using low-dose digital technique. This examination was reviewed with the aid of CAD. The breast tissue is composed of scattered fibroglandular densities. There are no dominant masses, typically malignant calcifications or architectural distortion. There has been no significant interval change. MM/MM screening mammo BI w/CAD IMPRESSION: NO MAMMOGRAPHIC EVIDENCE OF MALIGNANCY. ROUTINE FOLLOW-UP IS RECOMMENDED IN ONE YEAR. RESULT CODE: 1 Negative DENSITY CODE: 2 (approximately 25-50% glandular) There are scattered areas of fibroglandular density. FOLLOW UP: 1YR The false-negative rate of mammography is approximately 10-percent. Management of a palpable abnormality must be based on clinical grounds. Patient was entered into a reminder system with a target due date for the next mammogram. Impression dictated by: Caleb Yang M.D. 01/02/2025 4:31 PM Dictation Location: [facility] Dictated By: Caleb Yang MD 01/02/25 1629 Signed By: 01/02/25 1631 [facility] Work Phone: Laboratory - Chemistry and Chemistry - challenge Ordered By: Margaret Blanco on 28-81-9387Crhfvwcfa Ql (U)NegativeSelect Medical [facility] Clinic Rehabilitation Hospital, AvonGlucose (U) [Mass/Vol][facility] Ketones Ql (U)[facility] HospitalpH (U)5 [pH][facility] Centerpecific gravity (U) [Rel density]1.000[facility], AvonUrobilinogen (U) [Mass/Vol]0.2 mg/dLSelect Medical [facility] Clinic [facility], [place]onLaboratory - Specimen informationOrdered By: Margaret Blanco on 12-19-2024 Appearance (U)clearSelect Medical [facility] Clinic Rehabilitation Hospital, AvonColor (U)[facility]woodsLaboratory - UrinalysisOrdered By: Margaret Blanco on 93-05-8616Aojxxjacp esterase Test strip Ql (U)++[facility], AvonNitrite Ql (U)NegativeSelect Medical [facility] Hospital, AvonProtein Ql (U) NegativeSelect Medical [facility], AvonNo Panel InformationOrdered By: Margaret Blanco on 35-67-4649Rdset Occult BloodNegativeSelect Medical [facility], AvonNo Panel Informationon 72-77-7791RIZG HealthcareXR Hip - right 3 Viewson 25-04-6567Gqukizr Result: Xrays taken in the office today saved to the permanent record, 3 views including AP pelvis and lateral of the operative hip, show stable position and alignment of the MAYO prosthesis. No sign of loosening, fracture or catastrophic wear. Limb lengths are appropriate.[facility] Radiology Study observation (narrative)[facility] Panel Information Ordered By: Adri Moore on 34-88-9771GEMO HealthcareUrinalysis - DIPSTICKon 99-20-1575Afojiqvqph (U)HazyNiwi Other Bilirubin Ql (U)NegativeCoinbase Other Color (U)YellowCoinbase Other Glucose Ql (U)NegativeCoinbase Other Hemoglobin Ql (U)NegativeCoinbase Other Ketones Ql (U)NegativeCoinbase Other Leukocyte esterase Test strip Ql (U)++Coinbase Other Nitrite Ql (U)PositiveCoinbase Other pH (U)7.0 [pH]Coinbase Other Protein Ql (U)TraceCoinbase Other Specific gravity (U) [Rel density]1.010NoQ-Bot Other Urobilinogen (U) [Mass/Vol]0.2 mg/dLNorth Valuation App Other Urinalysis - DIPSTICKNorth Valuation App Other IntraOperative Documentson 77-71-8288NsvxbZmqpmgrlr [id number]#1.00TIFFNogwenEcu Health Medical Centerbraden [facility] Orthopaedic InstituteMain OR Intraoperative Recordon 16-98-9562Nydt OR Intraoperative RecordIntraOp Document Type FT Summary Primary Physician: Rach Valentine DO Finalized Date/Time: 01/01/23 07:55:08 Pt. Name: ZENY NESBITT./Sex: 1955 Female Med Rec #: [id number] Physician: Rach Valentine DO Financial #: [id number] Pt. Type: A Room/Bed: [place] [address] Admit/Disch: 12/30/22 05:47:12 - 12/30/22 14:10:00 Institution: Case Times FT Entry 1 Patient Times In Room 12/30/22 07:14:00 Out Room 12/30/22 09:50:00 Procedure Times Start 12/30/22 07:55:00 Stop 12/30/22 09:43:00 Anesthesia Times Start 12/30/22 07:14:00 Stop 12/30/22 09:50:00 Last Modified By: Mickey Rosales 12/30/22 09:50:08 General Comments: PREOP BLOCK BY DR. RUST WITH Danielle WINTERS RN ASSISTING. PATIENT TOLERATED WELL. HEART RATE 84, SPO2 99% ON ROOM AIR. Berta ROSALES RN. 01/01/23 Chart opened to review and send charges LRoth CSFA Case Attendance FT Entry 1 Entry 2 Entry 3 Case Attendee Kuldeep Helm CRNA, DO, David A Mohr, Jeff D Role Performed YANELI Surgeon - Primary NURSE TRANSITION/SA Time In 12/30/22 07:14:00 12/30/22 07:31:00 12/30/22 07:14:00 Time Out 12/30/22 09:50:00 12/30/22 09:33:00 12/30/22 09:50:00 Procedure HIP TOTAL ANTERIOR HIP TOTAL ANTERIOR HIP TOTAL ANTERIOR ROBOT ROBOT ROBOT ARTHROPLASTY(Right) ARTHROPLASTY(Right) ARTHROPLASTY(Right) Comments DR RUST SUPERVISING. Last Modified By: Kerri Rayo CST, CST, Kerri Rayo CST, Kerri Mcdonough 01/01/23 07:48:07 01/01/23 07:48:07 01/01/23 07:48:07 Entry 4 Entry 5 Entry 6 Case Attendee Meghan Antonio NURSE TRANSITION, Jimbo Darby Role Performed Scrub - Primary Staff - Other Staff - Other Time In 12/30/22 07:14:00 12/30/22 07:14:00 12/30/22 07:14:00 Time Out 12/30/22 09:50:00 12/30/22 09:50:00 12/30/22 09:50:00 Procedure HIP TOTAL ANTERIOR HIP TOTAL ANTERIOR HIP TOTAL ANTERIOR ROBOT ROBOT ROBOT ARTHROPLASTY(Right) ARTHROPLASTY(Right) ARTHROPLASTY(Right) Comments 2ND SCRUB 3RD SCRUB Last Modified By: Kerri Rayo CST, CST, Kerri Rayo CST, Kerri Mcdonough 01/01/23 07:48:07 01/01/23 07:48:07 01/01/23 07:48:07 Entry 7 Entry 8 Case Attendee Shaun LUND, Mickey Marte Role Performed Staff - Other Health Education Assistant - Primary Time In 12/30/22 07:14:00 12/30/22 07:14:00 Time Out 12/30/22 09:50:00 12/30/22 09:50:00 Procedure HIP TOTAL ANTERIOR HIP TOTAL ANTERIOR ROBOT ROBOT ARTHROPLASTY(Right) ARTHROPLASTY(Right) Comments LEG MANIPULATOR Last Modified By: Kerri Rayo CST, CST, Kerri Mcdonough 01/01/23 07:48:07 01/01/23 07:48:07 General Comments: SALVATORE TRIPLETT REP HERE FOR CASE. Berta ROSALES RN. Perioperative Protocols FT Pre-Care Text: Implements protective measures prior to operative or invasive procedure, confirms identity before the operative or invasive procedure, verifies operative procedure, surgical site, and laterality Entry 1 Procedure(s) HIP TOTAL ANTERIOR Patient Identity Birthday, ID Band ROBOT Verified (select at Check, Patient ARTHROPLASTY(Right) least 2): Participation Consents / H and P Anesthesia Consent, Operative Site Present Verified HandP, Surgery/Procedure Marking Verified Consent Surgical Site Yes Laterality Verified Yes Verified Procedure Verified Yes Correct Patient Yes Position Verified Availability Equipment, Implant, Prep Dry Yes Verified (If Medication, X-ray Applicable) PreOp Antibiotic Yes Time Out Kuldeep Helm CRNA, Given Participants Rach Valentine DO, Parrish Carter, Meghan Antonio, [place] NURSE TRANSITION, Satinder Flores, Jimbo Yung, Shaun LUND, Bobby Vides Terry T Time Out Complete 12/30/22 07:39:00 Outcomes Met? Yes Last Modified By: Kerri Rayo CST 01/01/23 07:48:11 Post-Care Text: The patient is free from signs and symptoms of injury caused by extraneous objects Allergy Information FT Pre-Care Text: Verifies allergies Entry 1 Allergies Reviewed? Yes Allergies Reviewed Self/Patient With Outcomes Met? Yes Last Modified By: Mickey Rosales 12/30/22 08:05:18 Post-Care Text: The patient received appropriate medication(s) safely administered during the perioperative period Surgical Procedures FT Entry 1 Procedure Description Procedure HIP TOTAL ANTERIOR Modifiers Right ROBOT ARTHROPLASTY Surgeon Description RIGHT TOTAL HIP ROBOTIC ASSISTED ARTHROPLASTY, DIRECT ANTERIOR APPROACH Primary Procedure Yes Primary Surgeon Rach Valentine DO Start 12/30/22 07:55:00 Stop 12/30/22 09:43:00 Anesthesia Type MAC Surgical Service Orthopedics Wound Class 1 - Clean Last Modified By: Kerri Rayo CST 01/01/23 07:48:15 General Case Data FT Pre-Care Text: Classifies surgical wound, implements aseptic technique, initiates traffic control Entry 1 Case Information OR OR 7 FT Case Level Level 6 Wound Class 1 - Clean Specialty Orthopedics ASA Class 2 Preop Diagnosis RIGHT HIP OSTEOARTHRITIS Postop Same As Preop Yes Postop Diagnosis RIGHT HIP OSTEOARTHRITIS Outcomes Met? Yes Last Modified By: Mickey Rosales 1 (more content not included)...NormalCleveland Clinic [facility]ron General Lodi HospitalConsent for Anesthesiaon 04-26-7590Shtxioj for Anesthesia [id number]#1.00TIFFNormalCleveland Clinic Ak[facility] General Lodi HospitalDischarge Instructionson 64-65-2272Batbqpkab Instructions [id number] Health Upper Valley Medical CenterIntraOperative Documentson 39-21-0466LnxgwIkgmioyjo Documents [id number] Marion General HospitalOperative Reporton 84-20-1138Krizubzbf ReportPatient: ZENY NESBITT Age: 67 years Sex: Female : 1955 Associated Diagnoses: None Author: Jimbo Rust Jr, DO Procedure Nerve Block Block Type: kiera. Laterality: Right. Informed consent for anesthesia management: Anesthesia options discussed including nerve block, Description of the procedure, risks, benefits, and alternatives was provided, The patient's questions were addressed. Time out: Confirmed correct patient, procedure and site. Time: Date/Time 12/30/2022 07:12:00. Indication: Block for postoperative pain management as requested by surgeon. Anesthesia Method: IV Sedation with monitored anesthesia care, The patient remained awake and able to interact in a meaningful way throughout the procedure. Preparation: The patient was placed in the following position Supine, Continuous pulse oximetry applied, Using maximal sterile barrier technique per current [facility] guidelines including hand hygeine, Guidance (Ultrasound used to identify anatomical landmarks, Using sterile gel and probe covers, Permanent image retained), The site was prepped with ChloraPrep. Procedure: Anesthetic Agent ropivicaine 0.5% 20cc with 4mg decadron , Needle was inserted without pain or parasthesia in the conscious patient, Number of attempts 1, Negative attempt at aspiration for blood, Medial and lateral spread of the anesthestic was observed, Periodic negative attempts at aspiration of blood were made as the local was injected, No pain or parathesia were elicited with injection of the anesthetic in the conscious patient, It was idetified that the correct anesthetic agent was administered to the correct site. Complications: The patient tolerated the procedure as expected.[facility] CenterComment on above:Result Comment: Electronically Signed By: Jimbo Rust Jr, DO\.br\Date and Time Signed: 12/31/22 13:28 EDTPreoperative Documentson [id number] Documents [id number] Ohio Regional HospitalProgress Note-Physicianon [id number] Note-PhysicianPatient: ZENY NESBITT Age: 67 years Sex: Female : 1955 Associated Diagnoses: None Author: Jimbo Rust Jr, DO Preoperative Information Anesthesia Preop Info: Time patient last ate or drank 12/30/2022 00:00:00. Anesthesia history: Patient history: None. Family history+: None. Informed consent: Signed by patient. Re-evaluation prior to induction: Initial evaluation reviewed: No significant change. Review of Systems Eye: Negative except as documented in history of present illness. Ear/Nose/Mouth/Throat: Negative except as documented in history of present illness. Respiratory: Negative except as documented in history of present illness. Cardiovascular: Negative except as documented in history of present illness. Musculoskeletal: Negative except as documented in history of present illness. Neurologic: Negative except as documented in history of present illness. Health Status Allergies: Allergic Reactions (Selected) Severity Not Documented Contrast Dye- Itching and hives. Darvon- Vomiting and nausea. Sulfa drugs- Vomiting and nausea. Problem list: All Problems Stapedectomy / SNOMED CT 657473038 / Confirmed Tinnitus / ICD-9-CM 388.30 / Confirmed Vertigo / ICD-9-CM 780.4 / Confirmed Histories Procedure history: Laparoscopic removal of ovarian cyst (4932411655). H/O: tubal ligation (935303788). Suspension of bladder (9407410). H/O: hysterectomy (199884784). Ear surgery (7217579758). R/O Ganglion cyst on foot (7557050105). r/o Vaginal polyp (2505734089). Social History Social & Psychosocial Habits Alcohol 12/30/2022 Risk Assessment: Denies Alcohol Use Substance Abuse 12/30/2022 Risk Assessment: Denies Substance Abuse Tobacco 12/30/2022 Risk Assessment: Denies Tobacco Use . Physical Examination Airway: Mallampati classification: II (soft palate, fauces, uvula visible). Respiratory: adequate air exchange. Cardiovascular: Regular rhythm. Plan [place] [employer] Anesthesiologists (ASA) physical status classification: Class II. Anesthetic Preoperative Plan: Anesthesia General. Regional Spinal.[facility] CenterComment on above:Result Comment: Electronically Signed By: Jimbo Rust Jr, DO\.br\Date and Time Signed: 12/31/22 13:28 EDTProgress Note-PhysicianPatient: ZENY NESBITT Age: 67 years Sex: Female : 1955 Associated Diagnoses: None Author: Jimbo Rust Jr, DO Postoperative Information Postoperative disposition: Postoperative disposition: To PACU. Optimetrix number: Optimetrix number [id number]. Anesthetic utilized: General. Health Status Allergies: Allergic Reactions (Selected) Severity Not Documented Contrast Dye- Itching and hives. Darvon- Vomiting and nausea. Sulfa drugs- Vomiting and nausea. Physical Examination Vital Signs 12/30/2022 13:58 EDT Heart Rate Monitored 53 bpm LOW SpO2 96 % 12/30/2022 13:58 EDT Systolic Blood Pressure 105 mmHg Diastolic Blood Pressure 66 mmHg Mean Arterial Pressure, Monitered 79 mmHg 12/30/2022 13:58 EDT Temperature Temporal Artery 36.3 DegC 12/30/2022 13:57 EDT Respiratory Rate 16 br/min 12/30/2022 12:51 EDT Heart Rate Monitored 59 bpm LOW SpO2 97 % 12/30/2022 12:47 EDT Systolic Blood Pressure 118 mmHg Diastolic Blood Pressure 75 mmHg Mean Arterial Pressure, Monitered 90 mmHg 12/30/2022 12:47 EDT Respiratory Rate 16 br/min 12/30/2022 10:33 EDT Heart Rate Monitored 65 bpm SpO2 95 % 12/30/2022 10:33 EDT Respiratory Rate 16 br/min 12/30/2022 10:33 EDT Temperature Temporal Artery 36.1 DegC LOW Pain Assessment: Controlled. General: Awake, Alert, Appropriate. Respiratory: Adequate air exchange. Cardiovascular: Stable, Normal peripheral perfusion. Neurological: Normal sensory function, Normal motor function. Assessment Anesthetic outcome No anesthetic complications noted. Adequate pain relief. able to void without difficulty, able to ambulate with assist, tolerating PO intake, no N/V. Review / Management Condition: Stable. Plan Transfer/Discharge: Transfer/Discharge Discharge when meets criteria ( To home ).[facility] CenterComment on above:Result Comment: Electronically Signed By: Jimbo Rust Jr, DO\.br\Date and Time Signed: 12/31/22 13:28 EDTABO/Rhon 68-00-7440XLP/RhPositiveInvalid Interpretation Code [facility] HospitalComment on above:Performed By: #### [id number], [id number], [id number], [id number], [id number], [id number], [id number] #### [facility] [address], [place] [address]MXA/Rh History Checkon 50-83-4736BVB/Rh History CheckVerified Hx Blood TypeNoEast Ohio Regional HospitalComment on above:Performed By: #### [id number], [id number], [id number], [id number], [id number], [id number], [id number] #### [facility] [address], [place] [address]TKSPcw 71-45-4664HFPJ Gel InterpNegativePremier Health Upper Valley Medical CenterComment on above:Performed By: #### [id number], [id number], [id number], [id number], [id number], [id number], [id number] #### [facility] [address], [place] [address]Hletl Bank ID#on [id number] Interpretation CodeC[facility] Clinic [facility] General Lodi HospitalComment on above:Performed By: #### [id number], [id number], [id number], 4097532, 1447318, 6010726, [id number] #### [facility] [address], [place] [address]Zpglsja for Treatmenton 20-28-3522Qmbaupx for Treatment [id number] Health Upper Valley Medical CenterDischarge Instructionson 11-04-4970Tnxizhppu Instructions ZENY NESBITT :1955 Visit Date:12/30/2022 Inpatient Discharge Instructions Your Care Team Admitting Physician - Rach Valentine DO Referring Physician - Rach Valentine DO Reason for Your Visit RIGHT HIP OA Tests Performed ABO/Rh Antibody Screen Pathology Tissue Exam -- Results Pending -- XR Fluoroscopy Up to 1 Hour -- Results Pending -- XR Hip 1 View Right + Pelvis -- Results Pending -- Please visit your patient portal for your results or contact your primary care physician. This Is Your Medications List aspirin (aspirin 81 mg Oral EC Tab) cefadroxil (cefadroxil 500 mg Cap) docusate (Colace 100 mg Cap) oxycodone (oxyCODONE 5 mg Tab) Procedure History Ear, nose and throat surgery, Ganglion cyst, H/O: hysterectomy, H/O: tubal ligation, Laparoscopic removal of ovarian cyst, Suspension of bladder, Vaginal polyp. What to do next Instructions From Your Doctor No qualifying data available. New Follow Up Appointments after Discharge Follow Up with Rach Valentine When: Where: [address] [place] [address] Business (1) Medications What How Much When Instructions Next Dose New aspirin (aspirin 81 mg Oral EC Tab) 1 Tablets By Mouth 2 times a day Pickup at [facility] #[id number] New cefadroxil (cefadroxil 500 mg Cap) 1 Capsules By Mouth Every 12 hours Duration: 2 Days Pickup at [facility] #[id number] New docusate (Colace 100 mg Cap) 1 Capsules By Mouth 2 times a day as needed for for constipation Pickup at [facility] #[id number] New oxycodone (oxyCODONE 5 mg Tab) 1 Tablets By Mouth As Directed 1-2 po q4-6 hrs prn pain Dx: M16.11, Z96.641 Duration: 7days Pickup at [facility] #[id number] Pharmacy Information [facility] #[id number]: [address] [place], [place] [id number] [phone] Test Results No qualifying data available. Allergies Contrast Dye (Itching, Hives) Darvon (Nausea, Vomiting) sulfa drugs (Vomiting, Nausea) Problems Ongoing - Any problem that you are currently receiving treatment for. Stapedectomy Tinnitus Vertigo Devices Implanted/Removed This Visit Notice: You have devices implanted this visit that may not be MRI compatible. Implanted HIP TOTAL ROBOT ARTHROPLASTY Hip R 6.5 MM LOW PROFILE HEX SCREW 12/30/2022 ACCOLADE II 127 DEGREE HIP STEM 12/30/2022 BIOLOX DELTA CERAMIC V40 FEMORAL HEAD 12/30/2022 TRIDENT II TRITANIUM CLUSTERHOLE ACETABULAR SHELL 12/30/2022 TRIDENT X3 ZERO DEGREE POLYETHYLENE INSERT 12/30/2022 Education Materials How to Use an Incentive Spirometer An incentive spirometer is a tool that measures how well you are filling your lungs with each breath. Learning to take long, deep breaths using this tool can help you keep your lungs clear and active. This may help to reverse or lessen your chance of developing breathing (pulmonary) problems, especially infection. You may be asked to use a spirometer: ? After a surgery. ? If you have a lung problem or a history of smoking. ? After a long period of time when you have been unable to move or be active. If the spirometer includes an indicator to show the highest number that you have reached, your health care provider or respiratory therapist will help you set a goal. Keep a log of your progress as told by your health care provider. What are the risks? ? Breathing too quickly may cause dizziness or cause you to pass out. Take your time so you do not get dizzy or light-headed. ? If you are in pain, you may need to take pain medicine before doing incentive spirometry. It is harder to take a deep breath if you are having pain. How to use your incentive spirometer 1. Sit up on the edge of your bed or on a chair. 2. Hold the incentive spirometer so that it is in an upright position. 3. Before you use the spirometer, breathe out normally. 4. Place the mouthpiece in your mouth. Make sure your lips are closed tightly around it. 5. Breathe in slowly and as deeply as you can through your mouth, causing the piston or the ball to rise toward the top of the chamber. 6. Hold your breath for 3?5 seconds, or for as long as possible. ? If the spirometer includes a motor coach tour operator indicator, use this to guide you in breathing. Slow down your breathing if the indicator goes above the marked areas. 7. Remove the mouthpiece from your mouth and breathe out normally. The piston or ball will return to the bottom of the chamber. 8. Rest for a few seconds, then repeat the steps 10 or more times. ? Take your time and take a few normal breaths between deep breaths so that you do not get dizzy or light-headed. ? Do this every 1?2 hours when you are awake. 9. If the spirometer includes a goal marker to show the highest number you have reached (best effort),use this as a goal to work toward during each repetition. 10. After each set of 10 deep breaths, cough a (more content not included)...Normal [facility] HospitalComment on above:Result Comment: Electronically Signed By: Maddie WILSON, Adelina Elizondo\.agus\Date and Time Signed: 12/30/22 10:26 EDTH&P Updateon 12-30-2022H&P [id number] [facility] CenterMain OR PACU I Recordon [id number] OR PACU I RecordPACU Phase I Document Type FT Summary Primary Physician: Rach Valentine DO Finalized Date/Time: 12/30/22 10:38:31 Pt. Name: ZENY NESBITT/Sex: 1955 Female Med Rec #: [id number] Physician: Rach Valentine DO Financial #: [id number] Pt. Type: A Room/Bed: [place] [address] Admit/Disch: 12/30/22 05:47:12 - Institution: Case Times PACU I FT Pre-Care Text: Identifies barriers to communication and implements measures to provide psychological support Develops individualized plan of care, and ensures continuity of care Maintains patient's dignity and privacy, and maintains patient confidentiality Identifies and reports philosophical, cultural, and spiritual beliefs and values Identifies individual values and wishes concerning care Implements aseptic technique, and administers prescribed antibiotic therapy and immunizing agents as ordered Evaluates postoperative tissue perfusion Implements thermoregulation measures, and monitors body temperature Evaluates postoperative respiratory status Evaluates postoperative cardiac status Evaluates postoperative neurological status Assesses pain control, collaborated in initiating patient-controlled analgesia and implements alternative methods of pain control Verifies allergies, administers prescribed medications and solutions, evaluates response to medications Entry 1 In PACU I 12/30/22 09:51:00 Discharge from PACU 12/30/22 10:29:00 I Outcomes Met? Yes Last Modified By: Rehana Du RN 12/30/22 10:38:20 Post-Care Text: The patient demonstrates knowledge of the expected response to the operative or invasive procedure The patient's care is consistent with the individualized perioperative plan of care The patient's rightto privacy is maintained The patient's value system, lifestyle, ethnicity, and culture are considered, respected, and incorporated into the perioperative plan of care The patient participates in decisions affecting his or her perioperative plan of care The patient is free from signs and symptoms of infection The patient has wound/tissue perfusion consistent with or improved from baseline levels established preoperatively The patient is at or returning to normothermia at the conclusion of the immediate postoperative period The patient's respiratory function is consistent with or improved from baseline levels established preoperativelyThe patient's cardiovascular status is consistent with or improved from baseline levels established preoperatively The patient's cardiovascular status is consistent with or improved from baseline levels established preoperatively The patient demonstrates and/or reports adequate pain control throughout the perioperative period The patient received appropriate medication(s), safely administered during the perioperativeperiod Acuity Level PACU I FT Entry 1 Start Time 12/30/22 09:51:00 Stop Time 12/30/22 10:29:00 Acuity Level Acuity Level I Last Modified By: Rehana Du RN 12/30/22 10:38:28 Finalized By: Rehana Du RN Document Signatures Signed By: Rehana Du RN 12/30/22 10:38[facility] CenterMain OR PACU II Recordon [id number] OR PACU II RecordPACU Phase II Document Type FT Summary Primary Physician: Rach Valentine DO Finalized Date/Time: 12/30/22 14:28:55 Pt. Name: ZENY NESBITT/Sex: 1955 Female Med Rec #: [id number] Physician: Rach Valentine DO Financial #: [id number] Pt. Type: A Room/Bed: [facility] Admit/Disch: 12/30/22 05:47:12 - Institution: Case Times PACU II FT Pre-Care Text: Identifies barriers to communication and implements measures to provide psychological support and determines knowledge level Develops individualized plan of care, and ensures continuity of care Maintains patient's dignity and privacy, and maintains patient confidentiality Identifies and reports philosophical, cultural, and spiritual beliefs and values Identifies individual values and wishes concerning care administers prescribed antibiotic therapy and immunizing agents as ordered, Evaluates postoperative tissue perfusion Implements thermoregulation measures, and monitors body temperature Evaluates postoperative respiratory statusEvaluates postoperative cardiac status Evaluates postoperative neurological status Assesses pain control, collaborated in initiating patient-controlled analgesia and implements alternative methods of pain control Verifies allergies, administers prescribed medications and solutions, evaluates response to medications Entry 1 In PACU II 12/30/22 10:30:00 Discharge from PACU 12/30/22 14:10:00 II Outcomes Met? Yes Last Modified By: Adelina Perkins RN 12/30/22 14:28:51 Post-Care Text: The patient demonstrates knowledge of the expected response to the operative or invasive procedure The patient's care is consistent with the individualized perioperative plan of care The patient's rightto privacy is maintained The patient's value system, lifestyle, ethnicity, and culture are considered, respected, and incorporated into the perioperative plan of care The patient participates in decisions affecting his or her perioperative plan of care. The patient is free from signs and symptoms of infection The patient has wound/tissue perfusion consistent with or improved from baseline levels established preoperatively The patient is at or returning to normothermia at the conclusion of the immediate postoperative period The patient's respiratory function is consistent with or improved from baseline levels established preoperativelyThe patient's cardiovascular status is consistent with or improved from baseline levels established preoperatively The patient's neurological status is consistent with or improved from baseline levels established preoperatively The patient demonstrates and/or reports adequate pain control throughout the perioperative period The patient received appropriate medication(s), safely administered during the perioperativeperiod Finalized By: Adelina Perkins RN Document Signatures Signed By: Adelina Perkins RN 12/30/22 14:28NoalC[facility] Clinic [facility] HospitalMain OR Preoperative Recordon [id number] OR Preoperative RecordPreOp Document Type FT Summary Primary Physician: Rach Valentine DO Finalized Date/Time: 12/30/22 09:54:58 Pt. Name: ZENY NESBITT /Sex: 1955 Female Med Rec #: [id number] Physician: Rach Valentine DO Financial #: [id number] Pt. Type: A Room/Bed: [facility] Admit/Disch: 12/30/22 05:47:12 - Institution: Case Times PreOp FT Pre-Care Text: Verifies consent for planned procedure, identifies individual values and wishes concerning care, includes family members in perioperative teaching Entry 1 Patient Times. In Pre Surgery 12/30/22 05:50:00 Out Pre Surgery 12/30/22 07:00:00 Outcomes Met? Yes Last Modified By: Mickey Rosales 12/30/22 09:54:51 Post-Care Text: The patient participates in decisions affecting his or her perioperative plan of care Finalized By: Mickey Rosales Document Signatures Signed By: Mickey Rosales 12/30/22 09:54 Mickey Rosales 12/30/22 09:54NoEast [facility] Regional HospitalMonitor Recordon [id number] Record [id number] Memorial Hospital [id number]#1.00TIFPike Community HospitalOperative Reporton [id number] ReportSURGERY DATE: 12/30/2022 [employer]AV[employer] EQUIPMENT SALES ASSOCIATE: Parrish Carter CST/ PREOPERATIVE DIAGNOSIS: Right hip osteoarthritis POSTOPERATIVE DIAGNOSIS: Right hip osteoarthritis OPERATION: Right hip robotic-assist total hip arthroplasty ANESTHESIA: Spinal/fascia iliaca block ANESTHESIOLOGIST: Kuldeep Helm CRNA ESTIMATED BLOOD LOSS: 250 mL INTRAVENOUS FLUIDS: Please see operative record SPECIMEN: Bone and soft tissue COMPLICATIONS: None IMPLANT: Annie Total Hip with a size 52 Trident II cluster cup; one 6.5 mm screw measuring 30 mm;a 52 x 36 neutral X3 polyethylene liner; on the femoral side, a size 4, 127-degree Accolade II witha 36+0 Biolox femoral head HISTORY/OPERATIVE INDICATIONS: The patient is a 67-year-old white female who presents complaining of right hip pain and difficulty. The patient has had the usual course of conservative care includingoral anti-inflammation, analgesia with Tylenol, supportive care and rest with the use of an assistive device as needed. The patient has failed this. With this and how the pain does effect quality of life, the patient does appear clinically indicated/cost effective for total hip arthroplasty. INTRAOPERATIVE PATHOLOGY: Upon dissection of the right hip from the direct anterior approach, thereis noted to be severe arthrosis. Total hip arthroplasty is done with samaritan of limb stability,alignment and length. Of note, the Rebelle robotic platform did initially have socket alignment and a bit of retroversion. As such, this was abandoned for this portion of the procedure. X- ray C-Arm intensification was utilized for cup placement along with visual cues. Adequate placement is achieved. Upon completing the femur and attempting measurement of leg length the femoral checkpoint at the greater trochanter did in fact dislodge and as such the robotic platform was not helpful in that engagement as well. Sabianism of apparent limb length stability is achieved. The patient did tolerate theprocedure well under spinal with fascia iliaca block. The block is requested per myself to aid in intra, perioperative and postoperative pain management. This does appear to be clinically indicated and cost effective. PROCEDURE: After informed consent is obtained the risks, complications and reasonable expectations of the procedure had been discussed. The patient is taken to the Operative Suite, placed on the operating room table in supine position. At this point, the patient is given a spinal anesthetic. A time-out procedure is performed, site verification verified. The patient is then appropriately positioned on the Blauvelt table. The boots are placed in the standard fashion to secure the patient to the table. After adequate positioning, the operative side arm is folded over the chest to allow access with the robotic platform. After adequate positioning, both hips are sterilely prepped and draped in the usual surgical fashion. This does include the contralateral anterior hip area up into the pelvic area. After sterile prep and drape, the focus is then to the array placement on the contralateral right hip. A total of three stab incisions are made at the appropriate level on the contralateral hip using the guide. The pins are placed; first the first and third pins followed by the second pin in line.The guide for the array is then placed overtop, secured and the array identified by the camera. At this point, the focus is to the operative hip. The direct anterior approach is utilized. Skin incision is made. The tensor fascia is split. Dissection is carried then medialward. The cross vasculatureof the ascending branches are then identified and cauterized. This did expose the pre-capsular fat.The capsule layer is identified. A minimal amount of the reflected head of the rectus femoris is elevated. At this point, the capsule is opened longitudinally and then at the inferior aspect in a T fashion, the limbs of the capsule are excised. The lateral limb is marked with a suture for later excision. The femoral neck is exposed. The approximate site of cut is appropriately made. At this point, the pubofemoral ligament is released as well for ease of exposure. The femoral checkpoint is placed in the greater trochanteric area. At this point, the hip is externally rotated approximately 20 degrees and traction applied. The corkscrew for head removal is placed within the femoral head. The femoral neck cut is made. The head is removed. The acetabulum is then exposed. The acetabular labrum, capsule are further removed. After adequate exposure of the acetabulum, the pelvic checkpoint is placed. The femoral checkpoint had been registered. The pelvic checkpoint is thus registered followed by registering of the pelvic array. This is then registered with fine articular points followed by fine rim points. The gross points are then identified and verified. This does include the anterior inferior aspects of the acetabulum for verification. At this point, the reamer is brought in. This is ap propriately se (more content not included)...[facility] Comment on above:Result Comment: Electronically Signed By: Rach Valentine DO\.br\Date and Time Signed: 12/30/22 11:19 EDTPatient Education - Texton 02-14-2138Bxnwngw Education - Text Pulmonary Medicine How to Use an Incentive Spirometer An incentive spirometer is a tool that measures how well you are filling your lungs with each breath. Learning to take long, deep breaths using this tool can help you keep your lungs clear and active. This may help to reverse or lessen your chance of developing breathing (pulmonary) problems, especially infection. You may be asked to use a spirometer: ? After a surgery. ? If you have a lung problem or a history of smoking. ? After a long period of time when you have been unable to move or be active. If the spirometer includes an indicator to show the highest number that you have reached, your health care provider or respiratory therapist will help you set a goal. Keep a log of your progress as told by your health care provider. What are the risks? ? Breathing too quickly may cause dizziness or cause you to pass out. Take your time so you do not get dizzy or light-headed. ? If you are in pain, you may need to take pain medicine before doing incentive spirometry. It is harder to take a deep breath if you are having pain. How to use your incentive spirometer 1. Sit up on the edge of your bed or on a chair. 2. Hold the incentive spirometer so that it is in an upright position. 3. Before you use the spirometer, breathe out normally. 4. Place the mouthpiece in your mouth. Make sure your lips are closed tightly around it. 5. Breathe in slowly and as deeply as you can through your mouth, causing the piston or the ball torise toward the top of the chamber. 6. Hold your breath for 3?5 seconds, or for as long as possible. ? If the spirometer includes a motor coach tour operator indicator, use this to guide you in breathing. Slow down your breathing if the indicator goes above the marked areas. 7. Remove the mouthpiece from your mouth and breathe out normally. The piston or ball will return to the bottom of the chamber. 8. Rest for a few seconds, then repeat the steps 10 or more times. ? Take your time and take a few normal breaths between deep breaths so that you do not get dizzy orlight-headed. ? Do this every 1?2 hours when you are awake. 9. If the spirometer includes a goal marker to show the highest number you have reached (best effort), use this as a goal to work toward during each repetition. 10. After each set of 10 deep breaths, cough a few times. This will help to make sure that your lungs are clear. ? If you have an incision on your chest or abdomen from surgery, place a pillow or a rolled-up towel firmly against the incision when you cough. This can help to reduce pain while taking deep breathsand coughing. General tips ? When you are able to get out of bed: ? Walk around often. ? Continue to take deep breaths and cough in order to clear your lungs. ? Keep using the incentive spirometer until your health care provider says it is okay to stop usingit. If you have been in the hospital, you may be told to keep using the spirometer at home. Contact a health care provider if: ? You are having difficulty using the spirometer. ? You have trouble using the spirometer as often as instructed. ? Your pain medicine is not giving enough relief for you to use the spirometer as told. ? You have a fever. Get help right away if: ? You develop shortness of breath. ? You develop a cough with bloody mucus from the lungs. ? You have fluid or blood coming from an incision site after you cough. Summary ? An incentive spirometer is a tool that can help you learn to take long, deep breaths to keep yourlungs clear and active. ? You may be asked to use a spirometer after a surgery, if you have a lung problem or a history of smoking, or if you have been inactive for a long period of time. ? Use your incentive spirometer as instructed every 1?2 hours while you are awake. ? If you have an incision on your chest or abdomen, place a pillow or a rolled- up towel firmly against your incision when you cough. This will help to reduce pain. ? Get help right away if you have shortness of breath, you cough up bloody mucus, or blood comes from your incision when you cough. This information is not intended to replace advice given to you by your health care provider. Make sure you discuss any questions you have with your health care provider. Document Revised: 05/07/2020 Document Reviewed: 05/07/2020 Zachary Prell Patient Education ? 2022 [employer]. [place], [place] [facility] DISCHARGE INSTRUCTIONS HIP REPLACEMENT ARTHROPLASTY Direct Anterior Approach INCISION CARE: Continue the daily dressing care to the hip as instructed in the hospital for 7 days postoperatively. The dressing will then be changed and worn an additional 7 days. You may then discontinue the dressing changes. The dressing over the upper pelvis area may be (more content not included)...[facility] CenterProgress Note-Physicianon [id number] Note-PhysicianPatient: ZENY NESBITT Age: 67 years Sex: Female : 1955 Associated Diagnoses: None Author: Rach Valentine DO Postoperative Information Procedure: R RA MAYO Preoperative Diagnosis: R hip OA. Postoperative Diagnosis: same. Performed by: cale. Handbag Operator: Raul. Specimens Removed: bone, soft tissue. Prosthesis: Annie. . Estimated Blood Loss: 250 ml. Complications: None. Anesthesia type: Spinal, fascia iliaca block.[facility] Comment on above:Result Comment: Electronically Signed By: Rach Valentine DO\.br\Date and Time Signed: 12/30/22 09:45 EDTXR Hip 1 View Right + Pelvison 15-78-5088KD Hip 1 View Right + PelvisExam Date/Time: 12/30/2022 10:16 EDT Reason for Exam: Post Op Report IMPRESSION: NORMAL BASELINE RIGHT TOTAL HIP REPLACEMENT. CLINICAL HISTORY: Post Op COMPARISONS: CT LOWER EXTREMITY ON 12/03/2022 FINDINGS: Supine AP film of the pelvis to include both hips and crossfire lateral view of the right hip by portable technique were obtained. There is right total hip prosthesis in good position. There is postsurgical change in the right upper thigh. Ordering Provider: Rach Valentine FINAL REPORT Dictated: 12/30/2022 10:29 am Alf Brooks M.D. Signed (Electronic Signature): 12/30/2022 10:29 am Signed by: Alf Brooks M.D. Transcribed by: ORI Technologist: STEVE Technical Comments Radiation Dose: Ka,r in mGy = 0 DAP = 0NoEast [place] Regional HospitalConsent for Procedure/Surgeryon [id number] for Procedure/Surgery [id number] Health Upper Valley Medical CenterC Urineon 97-36-8190Ixatyyss identified Cx Nom (U)Microbiology PROCEDURE: Urine Culture [R1] SOURCE: U CleanCatch BODY SITE: COLLECTED DATE/TIME: 12/03/2022 10:00 EDT RECEIVED DATE/TIME: 12/03/2022 10:29 EDT START DATE/TIME: 12/03/2022 10:29 EDT FREE TEXT SOURCE: Rach Valentine DO, DO, Rach Macias FINAL REPORTS Final Report [] Verified Date/Time: 12/05/2022 09:07 EDT <10,000 cfu/ml Mixed skin contaminants Performing Locations R1: This test was performed at: [facility], [address] [place] [address], [address] , , AwnaxuRagwyjCleveland Clinic [facility] General Lodi HospitalComment on above:Performed By: #### [id number], [id number] #### [address] [address]AFC/Rh Retypeon 49-25-0699RUP/Rh Retype InterpPositiveInvalid Interpretation CodeCleveland Clinic Akron General Lodi HospitalComment on above:Performed By: #### 1613656, 2045875, 19745370, 3604171, 0100494, 8122059, 7528632 #### [facility] [address] [place] [address] 334[address]Ugmm Diffon 08-59-4762Dgquzqkgh/100 WBC (Bld)0.9 %Normal0.0-2.0 [facility] HospitalComment on above:Performed By: #### 9104915, 8352966, 03739973, 9395006, 7790284, 8357342, 6646030 #### [facility] [address] [place] [address] 64141Pjeqlgadb/Leukocytes Auto (Bld) [Pure # fraction]0.1 E9/LNormal 0.0-0.2FCleveland Clinic Mercy HospitalComment on above:Performed By: #### 1973086, 9442029, 81221734, 7554578, 0495151, 8183334, 8016767 #### [facility] [address] [place] [address] 23525Kspjpiegknp/100 WBC (Bld)1.6 %Normal0.0-8.0[facility] HospitalComment on above:Performed By: #### 3148372, 9116262, 17711579, 0547746, 6371243, 2828232, 7337068 #### [facility] [address] [place] [address] 50483Cqphhcjyjuy/Leukocytes Auto (Bld) [Pure # fraction]0.1 E9/L Normal0.0-0.5FCleveland Clinic Mercy HospitalComment on above:Performed By: #### 3987873, 2280438, 93160673, 5093653, 2756527, 6983737, 2889682 #### [facility] [address] [place] [address] 48980Qskjdoihjro/100 WBC (Bld)30.3 %Jjownf75.0-50.0[facility] HospitalComment on above:Performed By: #### 0629100, 4640852, 63362730, 3036207, 7589768, 3050101, 1853011 #### [facility] [address] [place] [address] 99554Kijuevnuymq/Leukocytes Auto (Bld) [Pure # fraction]1.8 E9/L Normal1.0-4.0[facility] HospitalComment on above:Performed By: #### 6763638, 9933136, 46632952, 9012981, 7083875, 2059491, 3561597 #### [facility] [address] [place] [address] 08229Izjzfbhlj/100 WBC (Bld)8.8 %Normal4.0-14.0[facility] HospitalComment on above:Performed By: #### 7397089, 2251085, 29659844, 1741464, 3739774, 4505531, 8009809 #### [facility] [address] [place] [address] 39760Njsyuanyy/Leukocytes Auto (Bld) [Pure # fraction]0.5 E9/LNormal 0.2-1.0[facility] HospitalComment on above:Performed By: #### 5985446, 0941192, 60353524, 8819855, 2964499, 7677278, 0127409 #### [facility] [address] [place] [address] 23976Myxbirdjxip/100 WBC (Bld)58.4 %Zmhkoj27.0-75.0[facility] HospitalComment on above:Performed By: #### 0762412, 6932273, 63712872, 6496111, 0581167, 3424111, 0794702 #### [facility] [address] [place] [address] 60872Pcfstvtnadh/Leukocytes Auto (Bld) [Pure # fraction]3.4 E9/L Normal2.0-7.5FCleveland Clinic Mercy HospitalComment on above:Performed By: #### 6531047, 3561662, 13553656, 1035431, 5289399, 5528402, 1913048 #### [facility] [address] [place] [address] 95748SQSkm 83-26-8221Qxaz nitrogen [Mass/Vol]19 mg/dLNormal5-21 [facility] HospitalComment on above:Performed By: #### 0152175, 0909083, 85719464, 5501801, 2811484, 2625558, 0575031 #### [facility] [address] [place] [address] 89226WTR w/Indiceson 97-23-4592Dtpzkwxkxsn distribution width (RBC) [Ratio]13.9 %Vkysro08.9-14.2FCleveland Clinic Mercy HospitalComment on above: Performed By: #### 9057832, 4585744, 29059711, 1847598, 4127157, 9686164, 4938995 #### [facility] [address] [place] [address] 92693Eyicpgsgpj (Bld) [Volume fraction]42.9 %Wtzxjq63.0-46.0[facility] HospitalComment on above:Performed By: #### 5341025, 2318224, 70815725, 1886448, 2960111, 3248965, 4733986 #### [facility] [address], [place] [address]Lphsvhpohl (Bld) [Mass/Vol]14.6 g/bJSyfixi18.0-16.0[facility] HospitalComment on above:Performed By: #### 3033199, 4380043, 56386240, 9589609, 2907421, 2846605, 6854249 #### [facility] [address] [place] [address] 97578HUB (RBC) [Entitic mass]30.8 nhAsetpl37.0-34.0[facility] HospitalComment on above:Performed By: #### 3438980, 9836968, 82068097, 7953214, 0470129, 0269271, 5891966 #### [facility] [address] [place] [address] 32012FNSG (RBC) [Mass/Vol]34.1 g/hSEofqtl07.4-36.0[facility] HospitalComment on above:Performed By: #### 9150362, 6508658, 99665288, 8873801, 0936376, 5813008, 4631244 #### [facility] [address] [place] [address] 92374WOD (RBC) [Entitic vol]90.3 dUWfigdb47.0-100.0[facility] HospitalComment on above:Performed By: #### 2926916, 4973586, 66185821, 3255388, 9044567, 9146029, 3921900 #### [facility] [address] [place] [address] 224[address]Seedkioh mean volume (Bld) [Entitic vol]6.9 fLNormal6.4-10.8 [facility] HospitalComment on above:Performed By: #### 4045901, 3377173, 76479377, 6134583, 4213113, 9368790, 3534851 #### [facility] [address] [place] [address] 50428Rjgzegxgs (Bld) [#/Vol]410.0 E9/KYfsliw358.0-500.0[facility] HospitalComment on above:Performed By: #### 5710889, 4822696, 43105870, 8041039, 3847146, 7304803, 2287723 #### [facility] [address], [place] [address]DFB (Bld) [#/Vol]4.8 E12/LNormal4.3-5.9[facility] HospitalComment on above:Performed By: #### 8008370, 9238610, 66449607, 0609487, 4018200, 2665084, 9567838 #### [facility] [address], [place] [address]FBT corrected for nucl RBC Auto (Bld) [#/Vol]5.9 E9/LNormal 4.0-11.0[facility] HospitalComment on above:Performed By: #### 9841969, 8135641, 00663794, 6162204, 0826108, 4618687, 5470518 #### [facility] [address], [place] [address]MQ Lower Extremity w/o Contrast Righton 41-02-6974RC Lower Extremity w/o Contrast RightExam Date/Time: 12/03/2022 10:37 EDT Reason for Exam: RIGHT HIP OA Report IMPRESSION: MODERATE MARKED DEGENERATIVE CHANGE RIGHT HIP. MODERATE DEGENERATIVE CHANGE LEFT HIP. DEGENERATIVE CHANGE LOWER LUMBAR SPINE. CT BILATERAL LOWER EXTREMITY WITHOUT INTRAVENOUS CONTRAST MEDIUM. History: RIGHT HIP OA. Technical Factors: CT imaging of the lower extremities were obtained and formatted as 5 mm contiguous axial images from the pelvic brim to the proximal tibiae. Sagittal and coronal reconstructions were also obtained. Oral contrast medium: None. Intravenous contrast medium: None. Comparison: None Findings: Is bilateral narrowing hip joints, greater on right. Sclerosis articular surface acetabulum, on right, with osteophyte formation anterior and posterior acromium and inferior aspect right femoral head. Diffuse disc space narrowing L4-L5 and L5-S1. No fracture. No bone lesion. Soft tissue masses or abnormal fluid collections. All CT scans at this facility use dose modulation, iterative reconstruction, and/or weight based dosing when appropriate to reduce radiation dose to as low as reasonably achievable. Report Ordering Provider: Rach Valentine FINAL REPORT Dictated: 12/03/2022 4:34 pm Peewee Burroughs MD Signed (Electronic Signature): 12/03/2022 4:34 pm Signed by: Peewee Burroughs MD Transcribed by: ORI Technologist: JLWPremier Health Upper Valley Medical CenterConsent for Treatmenton 55-86-3224Flvlsvt for Treatment [id number]:127NoEast [place] Regional HospitalCreatinineon 60-81-7021Rizmthwrdn [Mass/Vol]0.7 mg/dLNormal0.5-1.3FCleveland Clinic Mercy HospitalComment on above:Performed By: #### 7823428, 4933650, 88657215, 8972921, 5845149, 6821702, 3506991 #### [facility] [address], [place] [address]Aygvmyhif 81-82-0575Skptwap [Mass/Vol]100 mg/fWGuxoqv59-953 [facility] HospitalComment on above:Performed By: #### 1514491, 9592424, 60031613, 2811159, 6366359, 5378950, 3081577 #### [facility] [address], [place] [address]Fuiktpd 93-76-0017Mcgsk gap [Moles/Vol]10 mmol/LNormal6-16 [facility] HospitalComment on above:Performed By: #### 1145820, 9901714, 57627936, 0975638, 3281984, 1918456, 6145451 #### [facility] [address], [place] [address]Fmmhhbav [Moles/Vol]109 mmol/RPsowhy311-494EpmzjkCleveland Clinic Ak[facility] General Lodi HospitalComment on above:Performed By: #### 3702545, 0845505, 37251066, 2274709, 3553112, 3388700, 7447866 #### [facility] [address], [place] [address]IO0 [Moles/Vol]24 mmol/OCscafn10-35VhbyycCleveland Clinic [facility] Hospital Comment on above:Performed By: #### 8998614, 8163278, 59767563, 8863283, 1224660, 3006441, 6985874 #### [facility] [address], [place] [address]Pnjoyipjn [Moles/Vol]4.1 mmol/LNormal3.5-5.3Fisher [facility] Orthopaedic InstituteComment on above:Performed By: #### 6479713, 8795744, 97612745, 9468808, 1526533, 5001797, 4636650 #### [facility] [address], [place] [address]Zcuvzi [Moles/Vol]139 mmol/HGylswv264-334KswxxlCleveland Clinic Ak[facility] General Lodi HospitalComment on above:Performed By: #### 0818679, 9022964, 13722735, 9488361, 3503049, 0651271, 1804171 #### [facility] [address] [place] [address] 454[address]Pbuvzbsko Orderon 99-60-6549Gkpxiafrn Order [id number]:127NormCommunity Memorial HospitalRAD - MISCon 73-56-2689ZBR [facility] [id number]:127NormCommunity Memorial HospitalUA With Cult Reflexon 94-76-5198Qmlqqoos LM Ql (Urine sed)TRACENormalTrace [facility] HospitalComment on above:Performed By: #### 4591214, 43771975 #### [facility] [address], [place] [address]Tmssjvcbp Ql (U)NegativeNormalNegativeCleveland Clinic [facility] General Lodi HospitalComment on above:Performed By: #### 1391560, 10768404 #### [facility] [address], [place] [address]Wdoozmn (U)SL CLOUDYAbnormalClearFCleveland Clinic Mercy Hospital Comment on above:Performed By: #### 6779310, 79667018 #### [facility] [address], [place] [address]Toaqm (U)STRAWAbnormalYellowCleveland Clinic [facility] General Lodi HospitalComment on above:Performed By: #### 4587737, 76120739 #### [facility] [address], [place] [address]Kaocrfavdf cells.squamous LM.HPF (Urine sed) [#/Area]0-2Normal 0-2Fisher [facility] Orthopaedic InstituteComment on above:Performed By: #### 4150030, 37485446 #### [facility] [address], [place] [address]Wpvrdgo Test strip (U) [Mass/Vol]NegativeNormalNegativeCleveland Clinic [facility] General Lodi HospitalComment on above:Performed By: #### 2740455, 42524374 #### [facility] [address], [place] [address]Uvqadxlmcy Ql (U)NegativeNormalNegativeCleveland Clinic [facility] Lodi HospitalComment on above:Performed By: #### 8016400, 18114498 #### [facility] [address], [place] [address]Rmsjaaz (U) [Mass/Vol]NegativeNormalNegativeCleveland Clinic [facility] General Lodi HospitalComment on above:Performed By: #### 8080929, 08836101 #### [facility] [address], [place] [address]Lrtytuf.plasma/[place].RBC (Bld) [Mass ratio]2-9Uqiusm6-8Innnrh [facility] Orthopaedic InstituteComment on above:Performed By: #### 5558180, 27649437 #### [facility] [address], [place] [address]Djqhyif Ql (U)NegativermalNegMagruder Memorial Hospital Comment on above:Performed By: #### 9245649, 80085164 #### [facility] [address] [place] [address]22[address]eI (U)5.5 [pH]Invalid Interpretation Code5.0-9.0[facility] HospitalComment on above:Performed By: #### 9651686, 32474497 #### [facility] [address] [place] [address]Yyovkcc (U) [Mass/Vol]NegativeNormalNegativeCleveland Clinic [facility] General Lodi HospitalComment on above:Performed By: #### 5567223, 52135505 #### [facility] [address] [place] [address] 19[address]Mguekfth gravity (U) [Rel density]1.020Invalid Interpretation Code1.005-1.030[facility] L[facility] HospitalComment on above:Performed By: #### 7512852, 77763655 #### [facility] [address] [place] [address]Nirb of Urine collection methodClean CatchNormalCleveland Clinic Akron General Lodi HospitalComment on above:Performed By: #### 3628731, 92583354 #### [facility] [address] [place] [address] 336[address]Vstkcvzdlsiu Qn (U)0.2 {Evonne'U}/dLNormal0.0-1.0[facility] HospitalComment on above:Performed By: #### 7899280, 23905792 #### [facility] [address] [place] [address]UQN Auto Ql (U)1+AbnormalNegativeC[facility] Clinic [facility] Comment on above:Performed By: #### 4002661, 45618272 #### [facility] [address] [place] [address]56[address]YQC LM.HPF (Urine sed) [#/Area]9-1Pdfsoy0-0Fjpqvq [facility] Orthopa[facility] InstituteComment on above:Performed By: #### 1256313, 52151303 #### [facility] [address] [place] [address] 52457MQ Chest 2 Viewson [id number] Chest 2 ViewsExam Date/Time: 12/03/2022 11:13 EDT Reason for Exam: P.A.T. Report IMPRESSION: NO RADIOGRAPHIC EVIDENCE OF ACTIVE DISEASE IN THE CHEST. CLINICAL INFORMATION: P.A.T. COMPARISON: None available. FINDINGS: Two views of the chest were obtained. Heart and mediastinum appear normal. The lungs appear clear. Visualized bony thorax and remainder of the chest appears unremarkable. Ordering Provider: Jimbo Rust FINAL REPORT Dictated: 12/03/2022 3:32 pm Peewee Burroughs MD Signed (Electronic Signature): 12/03/2022 3:32 pm Signed by: Peewee Burroughs MD Transcribed by: ORI Technologist: ALEXI Technical Comments Radiation Dose: lala Rice in mGy = na DAP = naNorWVUMedicine Harrison Community HospitaleGFRon 32-69-2082YYG/1.73 sq M.predicted among non-blacks MDRD (S/P/Bld) [Vol rate/Area]94 mL/min/1.73 m2 Normal>=[address] [place], [place] [address]Comment on above:Order Comment: Order added by Discern Expert.Result Comment: Chronic kidney disease could be indicated at eGFR's of less than 60 mL/min/1.73m2. Kidney failure is indicated at less than 15 mL/min/1.73m2.Performed By: #### 6320780, 2245704, 61036533, 7392076, 7569711, 3759937, 0462447 #### [facility] [address] [place], [place] [address]Vwbssajji Orderon 09-95-5084Pwomukdbp Order [id number]:127[facility] Medical CenterPhysician Orderon [id number] Order [id number]:[address] [place], [place] [address]CBC AUTO DIFFon 72-40-6937PPMF #0.0 103/ulNormal0.0-0.1The Dulce HospitalComment on above:Performed By: #### DATCBC #### [facility] [address] [place] [address] Dr. Veronique TristanBasophils/100 WBC (Bld)0.6 %Normal0.2-2.0[facility] Comment on above:Performed By: #### DATCBC #### [facility] [address] [place] [address] Dr. Veronique Youssef #0.1 103/ulNormal0.0-0.7The [facility] HospitalComment on above: Performed By: #### DATCBC #### [facility] [address] [place] [address] Dr. Veronique Mendozaosinophils/100 WBC (Bld)1.5 %Normal0.9-7.0[facility] Comment on above:Performed By: #### DATCBC #### [facility] [address] [place] [address] Dr. Veronique Mendozarythrocyte distribution width (RBC) [Ratio]13.6 %Jszdao95.0-15.0 The [facility] HospitalComment on above:Performed By: #### DATCBC #### [facility] [address] [place] [address] Dr. Veronique TristanHematocrit (Bld) [Volume fraction]42.7 %Lrefit36.0-48.0[facility] Health TroyComment on above:Performed By: #### DATCBC #### [facility] [address] [place] [address] Dr. Veronique TristanHemoglobin (Bld) [Mass/Vol]13.9 g/zLWutlae42.0-16.0The [facility] HospitalComment on above:Performed By: #### DATCBC #### [facility] [address] [place] [address] Dr. Veronique TristanIG #0.01 10e3/ulNormal0.00-0.03The [facility] HospitalComment on above:Performed By: #### DATCBC #### [facility] [address] [place] [address] Dr. Veronique Araya %0.2 %Normal0.0-0.5The [facility] HospitalComment on above: Performed By: #### DATCBC #### [facility] [address] [place] [address] Dr. Veronique Carter #2.4 103/ulNormal1.2-3.8The [facility] HospitalComment on above:Performed By: #### DATCBC #### [facility] [address] [place] [address] Dr. Veronique Ortizmphocytes/100 WBC (Bld)39.5 %Uofzcx86.5-60.0The [facility] HospitalComment on above:Performed By: #### DATCBC #### [facility] [address] [place] [address] Dr. Veronique Duran (RBC) [Entitic mass]29.3 nwOkdewq52.7-34.0The [facility] HospitalComment on above:Performed By: #### DATCBC #### [facility] [address] [place] [address] Dr. Veronique Duran (RBC) [Mass/Vol]32.6 g/lRQlsokz20.9-35.2The [facility] HospitalComment on above:Performed By: #### DATCBC #### [facility] [address] [place] [address] Dr. Veronique Duran (RBC) [Entitic vol]89.9 nEEmfghh83.0-99.0The [facility] HospitalComment on above:Performed By: #### DATCBC #### [facility] [address] [place] [address] Dr. Veronique Rios #0.6 103/ulNormal0.3-0.8The [facility] HospitalComment on above:Performed By: #### DATCBC #### [facility] [address] [place] [address] Dr. Veronique Merinoocytes/100 WBC (Bld)9.7 %Normal1.7-12.0[facility] Comment on above:Performed By: #### DATCBC #### [facility] [address] [place] [address] Dr. Veronique Berger #3.0 103/ulNormal1.4-6.5The [facility] HospitalComment on above:Performed By: #### DATCBC #### [facility] [address] [place] [address] Dr. Veronique Armstrongutrophils/100 WBC (Bld)48.5 %Msjcet85.0-75.0The [facility] HospitalComment on above:Performed By: #### DATCBC #### [facility] [address] [place] [address] Dr. Veronique Camacho mean volume (Bld) [Entitic vol]8.3 fLCritically low 9.5-13.5The [facility] HospitalComment on above:Performed By: #### DATCBC #### [facility] [address] [place] [address] Dr. Veronique CharlesT361 103/kmUzyhjt724-496Bcs [facility] HospitalComment on above: Performed By: #### DATCBC #### [facility] [address] [place] [address] Dr. Veronique TristanRBC4.75 106/ulNormal4.20-5.40The [facility] HospitalComment on above:Performed By: #### DATCBC #### [facility] [address] [place] [address] Dr. Veronique TristanWBC6.2 103/ulNormal4.0-11.0The [facility] HospitalComment on above: Performed By: #### DATCBC #### [facility] [address] [place] [address] Dr. Veronique Cunningham- BMP WITH LIPIDon [id number] gap [Moles/Vol]12.3 mmol/L NormalThe [facility] County HospitalComment on above:Performed By: #### DATBMP #### [facility] [address] [place] [address] Dr. Yilan ChangCalcium [Mass/Vol]9.4 mg/dLNormal8.5-10.1[facility] Comment on above:Performed By: #### DATBMP #### [facility] [address] [address] [address] Veronique TristanChloride [Moles/Vol]104 mmol/RSzumht45-423Cev [facility] Comment on above:Performed By: #### DATBMP #### [facility] [address] [address] [address] Veronique TristanCholesterol [Mass/Vol]225 mg/dLCritically high<=200The [facility] HospitalComment on above:Performed By: #### DATBMP #### [facility] [address] [address] [address] Veronique TristanCholesterol in HDL [Mass/Vol]41 mg/hMBnizfd37-62Xae [facility] HospitalComment on above:Performed By: #### DATBMP #### [facility] [address] [place] [address] Dr. Veronique Mosesesterol in LDL [Mass/Vol]147.0 mg/dLNormalThe [facility] County HospitalComment on above:Performed By: #### DATBMP #### [facility] [address] [place] [address] Dr. Veronique TristanCO2 [Moles/Vol]27.9 mmol/WXcbhhy09.0-32.0[facility] Comment on above:Performed By: #### DATBMP #### [facility] [address] [address] [address] Veronique TristanCreatinine [Mass/Vol]0.76 mg/dLNormal0.55-1.02The [facility] HospitalComment on above:Performed By: #### DATBMP #### [facility] [address] [place] [address] Dr. Veronique MendozaGFR-AF GEORGIAN>60Normal>=60The [facility] HospitalComment on above:Performed By: #### DATBMP #### [facility] [address] [address] [address] Veronique MendozaGFR-NON AF GEORGIAN>60Normal>=60[facility]tering Health TroyComment on above:Performed By: #### DATBMP #### [facility] [address] [address] [address] Veronique TristanGlucose [Mass/Vol]101 mg/lOJfyimy42-275SwaKettering Health Troy Comment on above:Performed By: #### DATBMP #### [facility] [address] [address] [address] Veronique Nunez NORMAL> or = 60 mg/dl - LOW CARDIOVASCULAR RISK <40 mg/dl - HIGH CARDIOVASCULAR RISKOhioHealth Hardin Memorial HospitalComment on above:Performed By: #### DATBMP #### [facility] [address] [place] [address] Dr. Veronique TristanLDL CALC NORMALSEE BELOWOhioHealth Hardin Memorial HospitalComment on above:Result Comment: <100 mg/dl OPTIMAL 100 - 129 mg/dl NEAR OR ABOVE OPTIMAL 130 - 159 mg/dl BORDERLINE HIGH 160 - 189 mg/dl HIGH >190 mg/dl VERY HIGH Performed By: #### DATBMP #### [facility] [address] [place] [address] Dr. Veronique TristanPotassium [Moles/Vol]4.2 mmol/LNormal3.5-5.1[facility] Comment on above:Performed By: #### DATBMP #### [facility] [address] [place] [address] Dr. Veronique TristanSodium [Moles/Vol]140 mmol/YJbrfbg775-394FqtKettering Health Troy Comment on above:Performed By: #### DATBMP #### [facility] [address] [address] [address] Veronique TristanTriglyceride [Mass/Vol]185 mg/dLCritically high<=150K[facility] Health TroyComment on above:Performed By: #### DATBMP #### [facility] [address] [place] [address] Dr. Veronique TristanUrea nitrogen [Mass/Vol]15.0 mg/dLNormal7.0-18.0The [facility] HospitalComment on above:Performed By: #### DATBMP #### [facility] [address] [place] [address] Dr. Veronique Barrow nitrogen/Creatinine [Mass ratio]19.7 mg/mgOhioHealth Hardin Memorial HospitalComment on above:Performed By: #### DATBMP #### [facility] [address] [place] [address] Dr. Veronique McdonaldLDL CALC37.0 mg/dLNoParkview Health Montpelier HospitalComment on above: Performed By: #### DATBMP #### [facility] [address] [place] [address] Dr. Veronique Chaudhari AUTO DIFFon [id number] #0.1 103/ulNormal0.0-0.1The [facility] HospitalComment on above:Performed By: #### CBC #### [facility] [address] [place] [address] Dr. Veronique TristanBasophils/100 WBC (Bld)1.0 %Normal0.2-2.0[facility] Comment on above:Performed By: #### CBC #### [facility] [address] [place] [address] Dr. Veronique Youssef #0.1 103/ulNormal0.0-0.7The [facility] HospitalComment on above: Performed By: #### CBC #### [facility] [address] [place] [address] Dr. Veronique Mendozaosinophils/100 WBC (Bld)2.1 %Normal0.9-7.0[facility] Comment on above:Performed By: #### CBC #### [facility] [address] [place] [address] Dr. Veronique Mendozarythrocyte distribution width (RBC) [Ratio]13.0 %Xqyhuk47.0-15.0 The [facility] HospitalComment on above:Performed By: #### CBC #### [facility] [address] [place] [address] Dr. Veronique TristanHematocrit (Bld) [Volume fraction]44.2 %Wwrbav24.0-48.0The [facility] HospitalComment on above:Performed By: #### CBC #### [facility] [address] [place] [address] Dr. Veronique TristanHemoglobin (Bld) [Mass/Vol]14.1 g/iSBuktrw68.0-16.0The [facility] HospitalComment on above:Performed By: #### CBC #### [facility] [address] [place] [address] Dr. Veronique TristanIG #0.02 10e3/ulNormal0.00-0.03The [facility] HospitalComment on above:Performed By: #### CBC #### [facility] [address] [place] [address] Dr. Veronique TristanIG %0.3 %Normal0.0-0.5The [facility] HospitalComment on above: Performed By: #### CBC #### [facility] [address] [place] [address] Dr. Veronique Carter #2.3 103/ulNormal1.2-3.8The [facility] HospitalComment on above:Performed By: #### CBC #### [facility] [address] [place] [address] Dr. Veronique Ortizmphocytes/100 WBC (Bld)40.4 %Porqys67.5-60.0The [facility] HospitalComment on above:Performed By: #### CBC #### [facility] [address] [place] [address] Dr. Veronique TristanMANUAL DIFF REQNONormalThe [facility] HospitalComment on above: Performed By: #### CBC #### [facility] [address] [place] [address] Dr. Veronique Camacho (RBC) [Entitic mass]30.2 icSzuomc34.7-34.0The [facility] HospitalComment on above:Performed By: #### CBC #### [facility] [address] [place] [address] Dr. Veronique DuranHC (RBC) [Mass/Vol]31.9 g/uSDhkwfm87.9-35.2The [facility] HospitalComment on above:Performed By: #### CBC #### [facility] [address] [address] [address] Veronique DuranV (RBC) [Entitic vol]94.6 lXJmfrnk91.0-99.0The [facility] HospitalComment on above:Performed By: #### CBC #### [facility] [address] [address] [address] Veronique Rios #0.6 103/ulNormal0.3-0.8The [facility] HospitalComment on above:Performed By: #### CBC #### [facility] [address] [address] [address] Veronique Merinoocytes/100 WBC (Bld)10.9 %Normal1.7-12.0[facility] Comment on above:Performed By: #### CBC #### [facility] [address] [address] [address] Veronique Berger #2.6 103/ulNormal1.4-6.5The [facility] HospitalComment on above:Performed By: #### CBC #### [facility] [address] [address] [address] Veronique Armstrongutrophils/100 WBC (Bld)45.3 %Nvouht71.0-75.0The [facility] HospitalComment on above:Performed By: #### CBC #### [facility] [address] [address] [address] Veronique Pecklet mean volume (Bld) [Entitic vol]8.9 fLCritically low 9.5-13.5The [facility] HospitalComment on above:Performed By: #### CBC #### [facility] [address] [address] [address] Veronique TristanPLT376 103/laWcvkqu271-521Wwk [facility] HospitalComment on above: Performed By: #### CBC #### [facility] [address] [address] [address] Veronique TristanRBC4.67 106/ulNormal4.20-5.40The [facility] HospitalComment on above:Performed By: #### CBC #### [facility] [address] [place] [address] Dr. Veronique TristanWBC5.8 103/ulNormal4.0-11.0The [facility] HospitalComment on above: Performed By: #### CBC #### [facility] [address] [place] [address] Dr. Veronique CarvajalID PROFILEon [id number]-HDL RATIO NORMSEE [facility]ula County Medical CenterComment on above:Result Comment: 3.3 - 4.4 LOW RISK 4.4 - 7.1 AVERAGE RISK 7.1 - 11.0 MODERATE RISK >11.0 HIGH RISKPerformed By: #### LIPID, CMP #### [facility] [address] [place] [address] Dr. Veronique Mosesesterol [Mass/Vol]193 mg/dLNormal<=200[facility] Comment on above:Performed By: #### LIPID, CMP #### [facility] [address] [place] [address] Dr. Veronique Mosesesterol in HDL [Mass/Vol]36 mg/dLCritically mjy44-94Nws [facility] HospitalComment on above:Performed By: #### LIPID, CMP #### [facility] [address] [place] [address] Dr. Veronique Mosesesterol in LDL [Mass/Vol]128.2 mg/dLNoParkview Health Montpelier HospitalComment on above:Performed By: #### LIPID, CMP #### [facility] [address] [place] [address] Dr. Veronique Fu.total/Cholesterol in HDL [Mass ratio]5.4 {ratio} NormalThe [facility] HospitalComment on above:Performed By: #### LIPID, CMP #### [facility] [address] [place] [address] Dr. Veronique Nunez NORMAL> or = 60 mg/dl - LOW CARDIOVASCULAR RISK <40 mg/dl - HIGH CARDIOVASCULAR RISKOhioHealth Hardin Memorial HospitalComment on above:Performed By: #### LIPID, CMP #### [facility] [address] [address] [address] Veronique Sidhu CALC NORMALSEE BELOWNoParkview Health Montpelier HospitalComment on above:Result Comment: <100 mg/dl OPTIMAL 100 - 129 mg/dl NEAR OR ABOVE OPTIMAL 130 - 159 mg/dl BORDERLINE HIGH 160 - 189 mg/dl HIGH >190 mg/dl VERY HIGH Performed By: #### LIPID, CMP #### [facility] [address] [address] [address] Veronique TristanTriglyceride [Mass/Vol]144 mg/dLNormal<=150[facility] Comment on above:Performed By: #### LIPID, CMP #### [facility] [address] [place] [address] Dr. Veronique McdonaldLDL CALC28.8 mg/dLNoParkview Health Montpelier HospitalComment on above: Performed By: #### LIPID, CMP #### [facility] [address] [place] [address] Dr. Veronique Yi 14(COMP METB)on [id number] [Mass/Vol]3.9 g/dLNormal 3.4-5.0The [facility] HospitalComment on above:Performed By: #### LIPID, CMP #### [facility] [address] [place] [address] Dr. Veronique TristanAlbumin/Globulin [Mass ratio]1.0 {ratio}NormalThe [facility] HospitalComment on above:Performed By: #### LIPID, CMP #### [facility] [address] [place] [address] Dr. Veronique Cruz [Catalytic activity/Vol]92 U/PBqrlas79-352Twe [facility] HospitalComment on above:Performed By: #### LIPID, CMP #### [facility] [address] [address] [address] Veronique Man [Catalytic activity/Vol]31 U/PAuedmz21-53Wwh [facility] HospitalComment on above:Performed By: #### LIPID, CMP #### [facility] [address] [address] [address] Veronique Heon gap [Moles/Vol]9.0 mmol/LNormalThe [facility] HospitalComment on above:Performed By: #### LIPID, CMP #### [facility] [address] [place] [address] Dr. Veronique TristanAST [Catalytic activity/Vol]26 U/UKtwpdp85-61Tyg [facility] HospitalComment on above:Performed By: #### LIPID, CMP #### [facility] [address] [place] [address] Dr. Veronique TristanBilirubin [Mass/Vol]0.5 mg/dLNormal0.2-1.0[facility] Comment on above:Performed By: #### LIPID, CMP #### [facility] [address] [place] [address] Dr. Veronique TristanCalcium [Mass/Vol]8.4 mg/dLCritically low8.5-10.1The [facility] HospitalComment on above:Performed By: #### LIPID, CMP #### [facility] [address] [place] [address] Dr. Veronique TristanChloride [Moles/Vol]104 mmol/VYokdwx10-153Ntu [facility] Comment on above:Performed By: #### LIPID, CMP #### [facility] [address] [place] [address] Dr. Veronique TristanCO2 [Moles/Vol]26.0 mmol/EDfvptd01.0-32.0[facility] Comment on above:Performed By: #### LIPID, CMP #### [facility] [address] [place] [address] Dr. Veronique TristanCreatinine [Mass/Vol]0.82 mg/dLNormal0.55-1.02The [facility] Hospitalment on above:Performed By: #### LIPID, CMP #### [facility] [address] [place] [address] Dr. Veronique MendozaGFR-AF GEORGIAN>60Normal>=60The [facility] HospitalComment on above:Performed By: #### LIPID, CMP #### [facility] [address] [place] [address] Dr. Veronique MendozaGFR-NON AF GEORGIAN>60Normal>=60The [facility] HospitalComment on above:Performed By: #### LIPID, CMP #### [facility] [address] [place] [address] Dr. Veronique TristanGlobulin (S) [Mass/Vol]3.8 g/dLNormalThe [facility] HospitalComment on above:Performed By: #### LIPID, CMP #### [facility] [address] [place] [address] Dr. Veronique TristanGlucose [Mass/Vol]101 mg/kCZfqunv52-079Boe [facility] Comment on above:Performed By: #### LIPID, CMP #### [facility] [address] [place] [address] Dr. Veronique TristanPotassium [Moles/Vol]4.0 mmol/LNormal3.5-5.1[facility] Comment on above:Performed By: #### LIPID, CMP #### [facility] [address] [place] [address] Dr. Veronique TristanProtein [Mass/Vol]7.7 g/dLNormal6.1-8.2[facility] Comment on above:Performed By: #### LIPID, CMP #### [facility] [address] [place] [address] Dr. Veronique TristanSodium [Moles/Vol]135 mmol/LCritically jfp390-035Nyb [facility] HospitalComment on above:Performed By: #### LIPID, CMP #### [facility] [address] [place] [address] Dr. Veronique TristanUrea nitrogen [Mass/Vol]14.0 mg/dLNormal7.0-18.0The [facility] HospitalComment on above:Performed By: #### LIPID, CMP #### [facility] [address] [place] [address] Dr. Yilan ChangUrea nitrogen/Creatinine [Mass ratio]17.1 mg/mgOhioHealth Hardin Memorial HospitalComment on above:Performed By: #### LIPID, CMP #### [facility] [address] [place] [address] Dr. Veronique TristanXR DEXA BONE DENSITYon [id number] DEXA BONE DENSITYEXAMINATION: XR DEXA BONE DENSITY, 06/21/2021 1:18 PM EDT HISTORY: Menopause present COMPARISON: 2009 TECHNIQUE: Dual-energy X-ray absorptiometry (DEXA) bone density study performed for the axial skeleton. FINDINGS: Bone mineral density of the AP spine L1-L4 measures 1.230 g/sq cm, 4% improvement from the prior exam. T score 0.4. WHO classification: Normal Lowest bone mineral density left femoral neck measures 0.829 g/sq cm. T score -1.5. 7.2% reduction from the prior exam. WHO classification: Osteopenia. IMPRESSION: Osteopenia. Moderate fracture risk Electronically authenticated by: RACH LOMAX Date: 2021-06-23 09:[address] [place], [place] [address]MG MAMM SCREEN 3D DEMARCO CADon [id number] MAMM SCREEN 3D DEMARCO CAD Patient: LILIANA NESBITT Exam Date: 06/21/2021 : 1955 Gender:F Ordering : DR MARGARET BLANCO M.D. Admission #: [id number] Family : Order #: [id number] CLICK HERE TO VIEW EXAM RADIOLOGY REPORT PROCEDURE: MAMMOGRAM SCREENING 3D BILATERAL CAD COMPARISON: MG MAMM SCREEN DEMARCO W CAD, 03/06/2017. MG MAMM DEMARCO SCRN W CAD DIG, 07/11/2014. INDICATIONS: Screening for malignant neoplasm of breast Calculator Name NCI Breast Cancer Risk Assessment Tool 5 Year Breast Cancer Risk Not Reported. Lifetime Breast Cancer Risk Not Reported. Personal Breast Cancer No Personal Ovarian Cancer No Treatments None Family Cancers None LOCATION: [facility] BREAST COMPOSITION: Heterogeneously dense,which may obscure small masses. FINDINGS: DIAGNOSTIC CATEGORY 2--BENIGN FINDING. NO CHANGE FROM COMPARISON. Scattered benign-appearing calcifications are present. Scattered benign-appearing lymph nodes are present. RIGHT BREAST: No significant suspicious finding. LEFT BREAST: No significant suspicious finding. RECOMMENDATIONS: ROUTINE MAMMOGRAM AND CLINICAL EVALUATION IN 12 MONTHS. PLEASE NOTE: A NORMAL MAMMOGRAM DOES NOT EXCLUDE THE POSSIBILITY OF BREAST CANCER. A CLINICALLY SUSPICIOUS PALPABLE LUMP SHOULD BE BIOPSIED. Dictated by: Rach Lomax MD on 06/24/2021 at 07:50 Approved by: Rach Lomax MD on 06/24/2021 at 07:52[facility] Vital Signs Date TimeVital SignValuePerforming IfaxvmfraPfdybnty69-85-1051 13:20-0400Body npqgdu705.26 cmMargaret Blanco MD Work Phone: [phone] [place]08-19-2025 13:20-0400 Body mass index (BMI) [Ratio]25.9 kg/u5JkejuwMargaret Blanco MD Work Phone: [phone] [place]08-19-2025 13:20-0400 Body pdotcr01.83 kgMargaret Blanco MD Work Phone: [phone]08-19-2025 13:20-0400 Diastolic blood ujvsfttq21 mm[Hg]Margaret Blanco MD Work Phone: [phone] [place]08-19-2025 13:20-0400 Heart rate63 /Vicente Blanco MD Work Phone: [facility] [place]08-19-2025 13:20-0400 Systolic blood lgiuuayx892 mm[Hg]Margaret Blanco MD Work Phone: [facility] [place]04-09-2025 10:55-0400 Body eqazbk733.26 cmSelect [facility] [place]04-09-2025 10:55-0400Body mass index (BMI) [Ratio]26.6 kg/c0WitrftmwxSelect [facility] [place]04-09-2025 10:55-0400Body .64 kgSelect Medical [facility] [place]04-09-2025 10:55-0400Diastolic blood mm[Hg][facility] 06-08-2024 10:55-0400Heart rate74 /minSelect Medical [facility] [place] 06-08-2024 10:55-0400Systolic blood hvkmvbub149 mm[Hg][facility] [place]01-30-2025 10:23-0500Body .26 cmSelect [facility] [place]01-30-2025 10:23-0500Body mass index (BMI) [Ratio]26.1 kg/a0QfsssokgvSelect Medical [facility] [place]01-30-2025 10:23-0500Body offbza32.28 kgSelect Medical [facility] [place]01-30-2025 10:23-0500Diastolic blood aikggnwp40 mm[Hg] [facility] [place]01-30-2025 10:23-0500Heart rate89 /minSelect Medical [facility] [place]01-30-2025 10:23-0500Systolic blood ttsxcboz073 mm[Hg] [facility] [place]10-23-2024 09:52-0400Body stfsku748 cmDavid Pocos DO Work Phone: [phone]10-23-2024 09:52-0400Body mass index (BMI) [Ratio]26.52 kg/p6Tbigl Pocos DO Work Phone: [phone]10-23-2024 09:52-0400Body jkkrok13.29 kgDavid Pocos DO Work Phone: [phone]06-17-2024 13:43-0400Body wiyzch391.26 cmMD Margaret Blanco Work Phone: [facility] [place]06-17-2024 13:43-0400 Body mass index (BMI) [Ratio]27 kg/m2MD Margaret Blanco Work Phone: [facility] [place]06-17-2024 13:43-0400 Body mkczyh90 kgMD Margaret Blanco Work Phone: [facility] [place]06-17-2024 13:43-0400 Diastolic blood ferdthkv18 mm[Hg]MD Margaret Blanco Work Phone: [facility] [place]06-17-2024 13:43-0400 Heart rate81 /minMD Margaret Blanco Work Phone: [facility] [facility] [place]-17[facility] 13:43-0400 Systolic blood xxvhhyte973 mm[Hg]MD Margaret Blanco Work Phone: [facility] [place]01-31-2024 10:32-0500 Body wzhuvu751.7 cmDavid Pocos DO Work Phone: noDe[facility] SystemAdlmoetapk91-00-0753 10:32-0500Body mass index (BMI) [Ratio]26.91 kg/y3Mimlo Pocos DO Work Phone: noDe[facility] SystemKrccqbckaw40-98-5117 10:32-0500Body temperature 98.29 [degF]Rach Pocos DO Work Phone: noDe[facility] Health SystemUiocbsblfm86-56-4006 10:32-0500Body mreiik55.29 kgDavid Pocos DO Work Phone: noDe[facility] SystemWqbfibztnt56-72-1855 10:00-0500Body .26 cmMargaret Blanco Other [employer] Other [id number] 10:00-0500Body mass index (BMI) [Ratio] 26.05 kg/e8ParpwyMargaret Blanco Other [employer] Other 12-27-2023 10:00-0500Body hfdsluwhluu53.4 [degF]Margaret Blanco Other [employer] Other 12-27-2023 10:00-0500Body .02 kgMargaret Blanco Other [employer] Other 12-27-2023 10:00-0500Diastolic blood mm[Hg] Margaret Blanco Other [employer] Other 12-27-2023 10:00-0500Systolic blood pmnflalc464 mm[Hg] Margaret Blanco Other [employer] Other 09-13-2023 09:15-0400Body .26 cmMargaret Blanco Other [facility] Other 09-13-2023 09:15-0400Body mass index (BMI) [Ratio] 25.81 kg/o4AlqxpkMargaret Blanco Other [facility] Other 09-13-2023 09:15-0400Body .29 kgMargaret Blanco Other [employer] Other 09-13-2023 09:15-0400Diastolic blood ognizpuq49 mm[Hg] Margaret Blanco Other [employer] Other 09-13-2023 09:15-0400Respiratory rate12 /minMargaret Blanco Other [employer] Other 09-13-2023 09:15-0400Systolic blood dawahwej080 mm[Hg] Margaret Blanco Other [employer] Other Encounters Encounter DateEncounter TypeCare ProviderFacilityStart: 01-02-2025 End: 33-05-0514Ojrilku encounter procedureMargaret Blanco MD-[facility] Work Phone: Start: 01-02-2025 End: 21-09-0754vrisaqzonsNdnjyv E Braun MD Work Phone: [phone]-[facility] HospitalStart: 12-19-2024 End: 92-02-0601iqzsqzeoabAsoqui E Braun MD Work Phone: [facility]: 12-19-2024 End: 71-38-2932Jgndbwc encounter procedureMargaret Blanco MD-[facility] Work Phone: Start: 10-18-2024 End: 24-09-0943kbhzgiynflOqkkji E Braun MD Work Phone: [facility] Work Phone: Start: 10-18-2024 End: 04-06-2173Kcikoye encounter Atif Blanco MD-[facility] Work Phone: Start: 08-02-2024 End: 02-59-0622Xwtxss outpatient visit 15 minutesEmily Colleen Russell MD Work Phone: [facility]oms SWS DERMComment on above:Irritant contact dermatitis due to other agents (Primary Dx); Seborrheic keratosisStart: 08-02-2024 End: 57-59-2457hhrakdewsgHHFEN A PETITTINot AvailableStart: 08-02-2024 End: 87-51-3335Ghmbel flowsheetEmeva Russell MD Work Phone: [facility]WS DERMStart: 08-02-2024 End: 20-89-0832Arelae flowsheetEmeva Russell MD Work Phone: [facility]WS DERMStart: 06-28-2024 End: 56-25-9830Kivoui flowsheetEmeva Russell MD Work Phone: [facility] SWS DERMStart: 06-28-2024 End: 66-50-5676Zrxnsv flowsheetEmeva Russell MD Work Phone: [facility] SWS DERMStart: 06-28-2024 End: 20-87-4450Aimsal outpatient visit 15 minutesEmily Colleen Russell MD Work Phone: noms SWS DERMComment on above:Irritant contact dermatitis due to other agents (Primary Dx); Lentigines; Seborrheic keratosis; Angioma of skin; History of SCC (squamous cell carcinoma) of skin; Seborrheic keratosis, inflamed; Herpesviral vesicular dermatitisStart: 06-28-2024 End: 35-45-4475ysokmwntbdISOIK A PETITTINot AvailableStart: 06-08-2024 End: 95-71-2559qxeilpggwxTuafdwtmjUniversity [facility]als [facility] Work Phone: Start: 06-08-2024 End: 84-71-2883Osgxspt encounter procedureCare[facility] Work Phone: Start: 03-31-2024 End: 10-14-5564Tgugwxa encounter procedureCarepartners [facility] Work Phone: Start: 12-23-2023 End: 37-50-4576Apblvk flowsheetDavid A Pocos DO Work Phone: [facility] ORTHOStart: 12-23-2023 End: 86-18-4724Bvyjay flowsheetDavid A Pocos DO Work Phone: [facility] ORTHOStart: 12-23-2023 End: 62-31-8832Oesjcrt encounter procedureDavid A Pocos DO Work Phone: [facility] NB ORTHOComment on above:Presence of right artificial hip joint (Primary Dx)Start: 12-23-2023 End: 69-06-9691edqsgfemzxRUDEG A POCOSNot AvailableStart: 12-17-2023 End: 95-17-9321Bdgbyx flowsheetEmeva Russell MD Work Phone: [facility]WS DERMStart: 12-17-2023 End: 64-60-9183Qtrrda flowsheetEmeva Russell MD Work Phone: [facility]WS DERMStart: 12-17-2023 End: 08-14-8265Kuinlii encounter procedureEmeva Russell MD Work Phone: [facility] SWS DERMComment on above:Seborrheic keratosis, inflamed (Primary Dx)Start: 12-17-2023 End: 87-52-4356pionvmkhkzLYQOA A PETITTINot AvailableStart: 09-17-2023 End: 83-92-2535oeitwecwoqYG Marcia E Braun Work Phone: [facility] Work Phone: Start: 09-17-2023 End: 37-18-4978Icavnum encounter procedureMD Margaret Blanco Work Phone: [facility] Cntr for Breast CarStart: 08-17-2023 End: 88-37-5799Dhrbtra encounter procedureMD Robles Blanco Work Phone: [facility] Work Phone: Start: 04-09-2023 End: 68-52-1425bryiequolqGgphuo Braun Other [facility] [employer] Other Start: 23-85-4471Plmjkpish encounterMargaret [facility] Centertart: 04-07-2023 End: 37-86-5832mxhtphqxkuMdpzps Braun Other [employer] Other Start: 06-02-8445Iirnvax evaluation of patient and reportIvonear BlancoParkview Health Bryan Hospitaltart: 83-93-6397Bsgavuaqt encounter Margaret BlancoParkview Health Bryan Hospitaltart: 04-01-2023 End: 86-11-4856Mtxggdy encounter procedureDavid A Pocos DO Work Phone: noms NB ORTHOComment on above:Primary osteoarthritis of right hip (Primary Dx); Presence of right artificial hip jointStart: 03-26-2023 End: 36-13-9272kddnczobpnQK Margaret Mcdonough Bella Work Phone: [facility] Work Phone: Start: 03-26-2023 End: 94-55-0606Hchiwqp encounter procedure Margaret Blanco Work Phone: [facility] Cntr for Breast CarStart: 03-05-2023 End: 18-91-6883cfzmaijbwdQpfwqd Braun Other [employer] Other Start: 64-04-2703Gbkbosblr encounterIvonear BlancoParkview Health Bryan Hospitaltart: 02-25-2023 End: 28-40-5573kmkojytvqbQquemq Braun Other [employer] Other Start: 06-76-3779Ksidim outpatient visit [address] [facility]: 02-25-2023 End: 71-27-5974Payrplg encounter procedureMD Margaret Blanco Work Phone: [facility] Work Phone: Start: 12-30-2022 End: 68-91-8187hnzuehfnvwFcdak A PocosFacility:FTMCStart: 12-03-2022 End: 78-75-3245ohbizonwumVrpdg A PocosFacility:FTMCStart: 11-12-2022 End: 32-46-9483bavyeecvoiDuawau Braun Other [employer] Other Start: 78-52-4454Mqhkvv outpatient visit [address] [facility]: 04-15-2022 End: 15-69-8152jeusuqtnhrNY MARGARET BLANCOFacility:E7Rulqk: 66-51-2379Mlyczglhn for general adult medical examination without abnormal findingsDR MARGARET BLANCO [facility]: 06-28-2021 End: 31-50-4201ekwcpoejcxGS MARCIA E BRAUNFacility:Y6Cfuex: 06-28-2021 End: 80-34-3525Zaypzhjuu for general adult medical examination without abnormal findingsDR MARGARET BLANCOFacility:N8Grydr: 06-21-2021 End: 67-33-0183bulahmpypvLA MARGARET BLANCOFacility:H1 Procedures DateProcedureProcedure DetailPerforming ClinicianStart: 10-60-1088Fuslvumzq mammography of bilateral breastsMcorry Blanco MD Work Phone: Start: 96-34-1347RZSGRULWXNG SKIN LESIONEmily Colleen Russell MD Work Phone: Start: 14-80-9369Syrrz hip unilateral with pelvis 2-3 viewsDavid A Pocos DO Work Phone: Start: 57-97-3798MFEDKJZYFHZ SKIN LESIONEmeva Russell MD Work Phone: Start: 79-64-2966Jpvsycyccqlgqhf of right breastMD Margaret Blanco Work Phone: Start: 89-77-6455Wrbbd hip unilateral with pelvis 2-3 viewsDavid A Pocos DO Work Phone: Start: 02-70-2988Qdagdndcb mammographyMD Margaret Blanco Work Phone: Start: 52-30-8614Xkotwvgazzinftt of right breastMD Margaret Blanco Work Phone: Plan of Treatment DateCare ActivityDetailAuthorStart: 06-28-2025 End: 19-47-1371Qerpbxv encounter nsrdtynhg12/29/2026 11:15 AM EDT Office Visit [facility] [address] [place] [address] Mary Russell MD [address] [place] [address] [facility] SWS DERMStart: 08-02-2024 End: 76-16-0524Eifkaud encounter jydppjhgq53/03/2025 3:20 PM EDT Office Visit [facility] [address] [place] [address] Mary Russell MD [address] [place] [address] ArrivedNOMS SWS DERMComment on above:ArrivedStart: 06-28-2024 End: 70-31-2047Oszzqur encounter procedureNOMS SWS DERMComment on above:Arrived Start: 39-94-0143Azvzpdb referralDoctors Hospital Work Phone: Start: 12-23-2023 End: 70-38-3593Gmysriu encounter procedureNOMS NB ORTHOComment on above:Arrived Start: 12-17-2023 End: 60-28-6942Wkuzccj encounter pwwvaasnf19/17/2024 9:05 AM EDT Office Visit [facility] [address] [place] [address] Mary Russell MD [address] [place] [address] ArrivedNOSUMMIT CAMPUS DERMComment on above:ArrivedStart: 06-30-2023 End: 62-40-1508Wyclwtu encounter xhrgkcaha87/30/2024 1:00 PM EDT Office Visit [facility] [address] [place] [address] Mary Russell MD [address] [place] [address] [facility] SWS DERMStart: 06-24-2023 End: 35-93-8155Stjgqsl encounter /24/2024 10:45 AM EDT Office Visit [facility] [address] [place] [address] Rach Valentine DO [address] [place] [address] [facility] S[facility]I ORTHOPatient EducationLow back pain in adultsDoctors Hospital Work Phone: [facility] referralDoctors Hospital Work Phone: XR Hip - right 3 ViewsXR hip right 2 or 3 views Imaging Routine Primary osteoarthritis of right hip 04/01/2023 10:17 AM [facility] Work Phone: XR Lumbar spine 2 or 3 ViewsSelect [facility] [place] Payers DatePayer CategoryPayerPolicy [id number] [facility] [id number] 2022-Present [address] [place] [address] [id number] [id number] [id number] 79-23-7433Kyepsqz Health Insurance [id number] [id number] 2.0.3.888196.27230619-05-5945Tjyz-[id number] [id number] 2.0.1.954178.3.57[id number] 2..1.389627.3.57[id number] 2.0.1.742218.3.57[id number] 2.0.1.791890.3.57[id number] 2.0.1.235362.3.57[id number] 2.0.1.165940.3.57[id number] 2.840.1.028117.3.57[id number] 2.0.1.729235.3.57[id number] 2.16.840.1.94[id number] 2.16.840.1.087114.3.579.2.593 [id number]-[id number] 2.16.840.1.654755.3.579.2.531 Social History DateTypeDetailFacilityStart: 04-01-2023 End: 14-04-2088Bev Assigned At [facility] HealthNOIL HealthcareStart: 24-32-0117Nbz Assigned At [facility] Centertart: 11-24-2022 End: 08-54-8146Bitwnqk smoking status NHISNever smoked tobaccoNOMS Healthcare Start: 34-82-0473Oktnqnw use and exposureSmokeless tobacco non-userNOIL HealthcareStart: 04-01-2023 End: 21-55-2356Abnrwzn intakeCurrent drinker of alcohol (finding)[facility] Start: 04-01-2023 End: 53-69-8589Ukitfpi intakeNOIL HealthcareStart: 11-24-2022 End: 32-72-8695Ogaibli CommentVery rarely drink more than 1NOMS HealthcareStart: 74-44-3328Npuafp identityIdentifies as female gender (finding)[facility] Start: 30-84-2101Qazbhi orientationHeterosexual (finding)[facility] HealthcareHow often to you have a drink containing alcohol?2-4 times a monthNOMS HealthcareHow many standard drinks containing alcohol do you have on a typical day?1 or 2NOMS HealthcareHow often do you have 6 or more drinks on 1 occasion?NeverNOMS HealthcareStart: 12-52-2491Hpeyyws Commentcaffeine: 1-2 cups per dayNOIL HealthcareStart: 81-71-6441RoyGjuzti (finding)[facility] [place] Clinical Notes 11-12-2022 to 10-18-2024 Note Date & RvzeEtvvAufunvae02-76-4985 Evaluation note* Diagnosis Onset Date Resolution Status Admit Date Acute lumbar back pain acuteAugust 2024 1:14pmDysuriaacuteOctober 2024 9:48am [facility] Work Phone: 1(330) 330-591306-03-2025 History of Present illness Narrative* Mary Russell MD - 08/02/2024 3:20 PM EDT Images from the original note were not included. Follow up Diagnosis: Irritant contact dermatitis Location: creases in the outer lateral canthus Last visit: 06/28/24 Status: still comes and goes Current treatment: Protopic ointment when flared which helps Follow up Diagnosis: ISK Location: left thigh Procedure performed: Cryotherapy Status: residual ISK present Date of procedure: 06/28/24 All pertinent medical history, medications, and allergies were reviewed. General Exam: alert, oriented to person, place, and time, normal affect, well appearing Unaccompanied A focused exam completed based on patient reported problems, see below: Skin Exam 1. IRRITANT CONTACT DERMATITIS DUE TO OTHER AGENTS Right Eye Erythema and mild scale on the right lateral canthus. Counseled on condition. Discussed this is from irritation from tears accumulating in the lateral canthal fold, cannot cure condition completely unless blepharoplasty done to remove excess skin. Recommend patient use thin layer of vaseline in area to create a barrier and prevent irritation. Patient i nstructed to continue protopic ointment 0.1% ointment up to twice daily when flared. Notify office if flaring despite treatment. 2. SEBORRHEIC KERATOSIS Left Thigh - Anterior Residual stuck on verrucous, hunt-brown papule. Offered to touch up residual SK present, patient declined. Next Visit: 1 year documented in this encounterExcelsior Springs Medical CenterCrlkiogeaq03-72-8351 History of Present illness Narrative* Mary Russell MD - 06/28/2024 11:05 AM EDT Skin Check Location: Patient requests a full body skin examination Dermatologic history: history of Squamous Cell Carcinoma Last visit: 1 year ago Established patient Lesions: Location: left leg Duration: months Quality: itchy Associated symptoms: rough, scaly Treatments: none Patient would like refills of Valtrex prescribed 06/26/22 All pertinent medical history, medications, and allergies were reviewed. General Exam: alert , oriented to person, place, and time , normal affect, well appearing Unaccompanied Scalp, Examined , exam limited by hair Right leg Examined Head, Face Examined Left leg Examined Neck Examined Right foot Examined Chest Examined Left foot Examined Back Examined Buttocks Examined Abdomen Examined Digits,nails: Examined Right arm Examined Patient wearing nail greek, Denies dark streaks under finger nails, Denies darkstreaks on toenails Left arm Examined Lymphatics: Not examined Hands Examined Skin Exam 1. LENTIGINES Generalized Scattered hunt macules in sun-exposed areas. The patient was informed that lentigines are benign pigmented lesions that occur on sun-exposed andsun-damaged skin. No treatment is necessary. Recommended regular use of broad spectrum sunscreen SPF 30 or higher 2. SEBORRHEIC KERATOSIS Generalized Stuck on verrucous, hnut-brown papules and plaques. Patient was counseled regarding these benign growths. Removal is normally not necessary, but they may be removed if they are symptomatic or for cosmetic reasons. 3. ANGIOMA OF SKIN Trunk Scattered hylton-red papule(s). The patient was informed that angiomas are benign growths on the the skin. No treatment is necessary. 4. HISTORY OF SCC (SQUAMOUS CELL CARCINOMA) OF SKIN Unspecified The patient was counseled that scars from excisional sites of nonmelanoma skin cancers should be monitored closely for recurrence. The patient was instructed to contact the office for any new, changing, or symptomatic moles. The patient was also instructed to contact the office for any new lesions that develop within or around the previous surgery scar. 5. SEBORRHEIC KERATOSIS, INFLAMED Left Thigh - Anterior Genoa and brown stuck on verrucous scaly papule with surrounding erythema The patient was informed that symptomatic seborrheic keratoses are benign growths that become inflamed, itchy, tender, traumatized, caught on clothing, or bleed. Symptomatic lesions can be treated with cryotherapy or curretage. Thicker lesions treated with cryotherapy may require more than one treatment. The patient was instructed to notify the office if abnormal redness or tenderness develops atthe treatment site. Cryotherapy today, see procedure note. Diagnosis: Inflamed seborrheic keratosis Indication: Inflamed Consent: Verbal consent was obtained and risks were discussed, including, but not limited to risks of scarring, darker or regional rehabilitation director pigmentary changes, recurrence, incomplete removal and infection. Method: Liquid nitrogen was used to treat the lesion(s) with two 5-10 second freeze-thaw cycles Number of lesions treated: 1 Post-procedure instructions: Instructions were given orally and in writing. The office will be contacted if the lesion fails to resolve despite treatment, or if a side effect develops such as abnormal crusting, scabbing, redness or tenderness Cryotherapy, skin lesion - Left Thigh - Anterior 6. IRRITANT CONTACT DERMATITIS DUE TO OTHER AGENTS Right Eye Erythema and mild scale on the right lateral canthus. Counseled on condition. Start thin layer on vaseline to create a barrier and prevent irritation. Patient can call for a prescription of protopic 0.1% ointment to apply bid prn for flares if symptoms fail to improve or worsen. 7. HERPESVIRAL VESICULAR DERMATITIS Lips Clear today Refills given of valtrex valACYclovir (Valtrex) 1 g tablet - Lips Take 2 tablets twice a day x 1 day at first start of outbreak, 1 day supply Next Visit: 1 year documented in this encounterExcelsior Springs Medical CenterQqtofmdfiq84-91-8421 Evaluation note* Diagnosis Onset Date Resolution Status Admit Date Eyelid abnormality acuteJanuary 2024 10:18amHearing lossacuteApril 2024 10:51am [facility] Work Phone: 1(362) 193-406710-23-2024 History of Present illness Narrative* Rach Valentine, DO - 12/23/2023 9:45 AM EDT Post op MAYO annual visit: The patient is seen and evaluated for annual total hip arthroplasty visit. Pain is appropriately controlled. Denies chest pain or shortness of breath or palpitations. Continues to be consistent and diligent with home exercise program as well as physical therapy modalities. Happy with the procedure. Physical Exam: The total hip incision is clean, dry and intact. Has a stable arc of motion without mechanical symptoms. No instability of the prosthesis. No rash, infection or DVT. The calves are supple bilaterally. Gait is unassisted. Image Results: Xrays taken in the office today saved to the permanent record, 3 views including AP pelvis and lateral of the operative hip, show stable position and alignment of the MAYO prosthesis. No sign of loosening, fracture or catastrophic wear. Limb lengths are appropriate. Assessment: S/P total hip arthroplasty-annual post-operative visit Treatment Plan: The nature of the findings were discussed at length. Continuance of regular exercise, weight management and fall precautions reviewed. Metal detectors are discussed. roasterman antibiotic prophylaxis for dental or invasive work were reviewed. Numerous questions were answered. Follow-up in 2 years for repeat xray and exam, sooner if concerned. The patient is discharged in stable condition. The timeincluding pre-visit review of records and imaging, as well as the time from check in, x-ray, evaluation, review of images, decision making, education and treatment is 25 minutes here today. documented in this encounterExcelsior Springs Medical CenterSyethfartd66-77-9184 History of Present illness Narrative* Mary Russell MD - 12/17/2023 9:05 AM EDT Lesions: Location: left neck Duration: two months Quality: itchy at times Modifying factors: aggravated by picking Associated symptoms: non-healing Treatments: none Established patient All pertinent medical history, medications, and allergies were reviewed. General Exam: alert, oriented to person, place, and time, normal affect, well appearing Unaccompanied A focused exam completed based on patient reported problems, see below: 1. Seborrheic keratosis, inflamed (2) Left Anterior Neck, Right Malar Cheek Genoa and brown stuck on verrucous scaly papule with surrounding erythema The patient was informed that symptomatic seborrheic keratoses are benign growths that become inflamed, itchy, tender, traumatized, caught on clothing, or bleed. Symptomatic lesions can be treated with cryotherapy or curretage. Thicker lesions treated with cryotherapy may require more than one treatment. The patient was instructed to notify the office if abnormal redness or tenderness develops atthe treatment site. Cryotherapy today, see procedure note. Diagnosis: Inflamed seborrheic keratosis Indication: Inflamed Consent: Verbal consent was obtained and risks were discussed, including, but not limited to risks of scarring, darker or regional rehabilitation director pigmentary changes, recurrence, incomplete removal and infection. Method: Liquid nitrogen was used to treat the lesion(s) with two 5-10 second freeze-thaw cycles Number of lesions treated: 2 Post-procedure instructions: Instructions were given orally and in writing. The office will be contacted if the lesion fails to resolve despite treatment, or if a side effect develops such as abnormal crusting, scabbing, redness or tenderness Cryotherapy, skin lesion - Left Anterior Neck, Right Malar Cheek Next Visit: as scheduled documented in this encounterExcelsior Springs Medical CenterVjznvczwel71-80-0826 Evaluation note* Encounter Date Diagnosis Assessment Notes Treatment Notes Treatment Clinical Notes Apr, Dysuria (ICD-10 - R30.0) [employer] Other 02-06-2024 Evaluation note* Encounter Date Diagnosis Assessment Notes Treatment Notes Treatment Clinical Notes Apr, Dysuria (ICD-10 - R30.0) [employer] Other 01-31-2024 History of Present illness Narrative* Eugenie Thakkar - 04/01/2023 10:30 AM EST Images from the original note were not included. Liliana Nesbitt is a 67 y.o. female presents with chief complaint of right robotic assist total hip arthroplasty 12-30-2022. HPI: Zeny returns here today for her three month check of her right hip. She is doing well, progressing. She denies any numbness or tingling, no fever or chills. She has been advancing her activities as is otherwise tolerated. SUBJECTIVE: MEDICATIONS: No current outpatient medications ALLERGIES: Allergies Allergen Reactions Iodinated Contrast Media Other Reaction(s): Unknown Iodine Other Propoxyphene Other Other Reaction(s): Unknown Sulfamethoxazole-Trimethoprim SURGICAL HISTORY: Past Surgical History: Procedure Laterality Date BREAST CYST EXCISION 1988 CYST REMOVAL 2004 from foot EYE SURGERY x3 GANGLION CYST EXCISION 1996 HIP ARTHROPLASTY Right 12/30/2022 DAP HYSTERECTOMY 1998 FAMILY HISTORY: Family History Problem Relation Name Age of Onset Anesthesia problems Mother Sandra Lomeli Cancer Mother Sandra Lomeli Cancer Maternal Grandmother [address] Hammer Osteoporosis Maternal Grandmother [address] Hammer Cancer Sister Marivel Mcgee SOCIAL HISTORY: Social History Tobacco Use Smoking status: Never Smokeless tobacco: Never Vaping Use Vaping Use: Never used Substance Use Topics Alcohol use: Yes Alcohol/week: 1.0 standard drink of alcohol Types: 1 Glasses of wine per week Comment: Very rarely drink more than 1 Drug use: Never Depression: Not on file REVIEW OF SYMPTOMS: The review of systems, history and current medications list are all reviewed today. OBJECTIVE: Visit Vitals Temp 98.3 F Ht 5' 8 Wt 177 lb BMI 26.91 kg/m OB Status Unknown Smoking Status Never BSA 1.96 m Physical Exam Her orthopedic exam here today reveals gentle arc of motion without significant difficulty. The calf and thigh are supple. No deformity. No limb length inequality. The left hip reveals arc of motion without difficulty. No tenderness. Range of motion is relatively symmetric. Exam of the x-ray AP pelvis, right hip total of three views with permanent images are saved to the record does show what appears to be well-fixed, well- aligned total hip arthroplasty on the right. Noevidence of fracture, loosening or catastrophic wear. Overall alignment is appropriate. ASSESSMENT AND PLAN: Assessment/Plan Status post right total hip arthroplasty. The findings are discussed. We did outline balance of activities and findings for time frame. She does really question whether all of this is normal. We did reassure her here today. We did recommend follow up in three months for x-ray and recheck. She is counseled on the antibiotic prophylaxis and metal detectors. She will continue to advance and will continue the exercise program. All of her questions are otherwise answered this day. The patient was seen and examined. From the time of check in, nurse triage, vital signs, x-ray, x-ray interpretation, review of systems, comprehensive history and physical exam as well as setting up treatment plan and further management took 25 minutes. documented in this encounterExcelsior Springs [facility] [id number] Evaluation note* Encounter Date Diagnosis Assessment Notes Treatment Notes Treatment Clinical Notes Mar, Mass of right axilla (ICD-10 - R 22.31) [employer] Other 12-27-2023 Evaluation note* Encounter Date Diagnosis Assessment Notes Treatment Notes Treatment Clinical Notes Jan, Mass of right axilla (ICD-10 - R 22.31) PT will do testing at [place] as it is >1 yr since last mamm [employer] Other [id number] NotePT Evaluation completed with an AMPAC score of 18/24. Pt was able to perform bed mobility with Min A and able to transfer with SBA. pt was able to ambulate 80 ft with FWW with CGA. Pt was able to perform steps with CGA. Pt would be functionally safe to return home with caregiver assist and [facility] [id number] Clinic [facility]09-13-2023 Evaluation note* Encounter Date Diagnosis Assessment Notes Treatment Notes Treatment Clinical Notes Oct, Right medial knee pain (ICD-10 - M25.561) Pt will contact Dr. Valentine office. Will check xray for joint integrity. Her pain has improved, but she is cautious w her upcoming surgery in November that her knee will be 100%. She gave verbal permission to send notes to their office. [employer] Other evalutqzup noteNo assessment information available [facility] Work Phone: evaluation note* Diagnosis Primary osteoarthritis of right hip- Primary Presence of right artificial hip joint documented in this encounter [facility] HealthcareEvaluation noteNo InformationNort Valuation App Other Evaluation note* Diagnosis Onset Date Resolution Status Chronic insomnia acuteSinusitis, acute maxillaryacute [facility] Work Phone: Evaluation note* Diagnosis Seborrheic keratosis, inflamed- Primary [facility]* Diagnosis Presence of right artificial hip joint- Primary [facility]* Diagnosis Irritant contact dermatitis due to other agents- Primary Lentigines Seborrheic keratosis Angioma of skin History of SCC (squamous cell carcinoma) of skin Personal history of other malignant neoplasm of skin Seborrheic keratosis, inflamed Herpesviral vesicular dermatitis Dermatitis herpetiformis documented in this encounter [facility] HealthcareEvaluation note* Diagnosis Irritant contact dermatitis due to other agents- Primary Seborrheic keratosis documented in this encounter [facility] HealthcareEvaluation note* Diagnosis Onset Date Resolution Status Admit Date Acute lumbar back pain acuteAugust 2024 1:14pm [facility] Work Phone: History general Narrative - Reported* Type Description Date Medical History Primary osteoarthritis of right hip Medical HistoryCalcification of arterySurgical HistoryhysterectomySurgical Historyear surgery n0Bopuruha Historyovarian cystSurgical Historybladder suspension, unspecifiedHospitalization Historychildbirth x 5 [employer] Other History general Narrative - Reported* Type Description Date Medical History Primary osteoarthritis of right hip Medical HistoryCalcification of arterySurgical HistoryhysterectomySurgical Historyear surgery l6Scdbzvni Historyovarian cystSurgical Historybladder suspension, unspecifiedSurgical HistoryTotal right hip axiuinptwjc50/31/23 Hospitalization Historychildbirth x 5 [employer] Other Hospital Discharge instructionsAmbulatory Orders* Referral to Audiology Time Frame: 06/08/24, Location: None [facility] Work Phone: Reason for referral (narrative)No reason for referral information availableDoctors Hospital Work Phone: Summary Purpose Family History No Family History Records Found Relationship Condition Age at Onset Recorded Date/T fatuma father Heart disease Unknown DeceasedUnknownmotherMalignant neoplasmUnknown Advance Directives No Advanced Directives Records Found Advance Directive Response Recorded Date/ Time Advance Directives No March 23, 2023 12:04pm Advance Directive Response Recorded Date/ Time Advance Directives No March 23, 2023 1:04pm Chief Complaint and Reason for Visit Chief Complaint Lump In Armpit N63.11 Chief Complaint laryngitis, cough N63.11Reason for VisitChronic insomnia Sinusitis, acute maxillary Chief Complaint Admit Date eye concerns March 31, 2024 1 0:18am eyes still bothering her June 08, 2024 10:51am Reason for Visit Admit Date Eyelid abnormality March 31, 2024 1 0:18am Hearing loss June 08, 2024 10:5 1am Chief Complaint Admit Date Lower Back Pain October 18, 2024 1: 14pm Reason for Visit Admit Date Acute lumbar back pain October 18, 2024 1:14pm Chief Complaint Admit Date Lower Back Pain October 18, 2024 1: 14pm Give sample for poss UTI December 19 025 9:48am Reason for Visit Admit Date Acute lumbar back pain October 18, 2024 1:14pm Dysuria December 19, 2024 9 :48am Chief Complaint Admit Date Lower Back Pain October 18, 2024 1: 14pm Give sample for poss UTI December 19 025 9:48am Z12.31 January 02, 2025 3 :34pm Additional Source Comments INFORMATION SOURCE (unrecogn ized section and content) DATE CREATED AUTHOR 04/16/2022 [facility] DATE CREATED AUTHOR AUTHOR'S ORGANIZ ATION 03/31/2023 [facility] DATE CREATED AUTHOR AUTHOR'S ORGANIZ ATION 08/03/2024 [facility] DATE CREATED AUTHOR AUTHOR'S ORGANIZ ATION 01/07/2025 [facility] REASON FOR VISIT (unrecogniz ed section and content) ReasonCommentsFollow-upReasonCommentsSuspicious Skin LesionReasonComments Follow-upR RA DAA MAYO 12/30/22 FTMCReasonCommentsSkin Check Care Teams (unrecognized sec tion and content) Team Status: Active Member Role Status Dates Margaret Blanco MD Primary Care Provider Active Team Status: Inactive Member Role Status Dates Margaret Blanco MD Attending Provider Active St art: February 25, 2023 End: February 25, 2023 Team Status: Inactive Member Role Status Dates Margaret Blanco MD Primary Care Provide r, Attending Provider, Referring Provider Active Start: March 26, 2023 End: March 26, 2023Team MemberRelationshipSpecialtyStart DateEnd Date Margaret Blanco MD [address] [place] [address] PCP - GeneralFamily Medicine11/24/22 Team Status: Inactive Member Role Status Dates Margaret Blanco MD Primary Care Provide r, Attending Provider Active Start: August 17, 2023 End: August 17, 2023 Team Status: Inactive Member Role Status Dates Margaret Blanco MD Primary Care Provide r, Attending Provider Active Start: September 17, 2023 End: September 17, 2023Team MemberRelationshipSpecialtyStart DateEnd Date Margaret Blanco MD [address] [place] [phone] [facility]11/24/22Team MemberRelationshipSpecialtyStart DateEnd Date Margaret Blanco MD [address] [place] [phone] [facility] - [facility]11/24/22Team MemberRelationshipSpecialtyStart DateEnd Date Margaret Blanco MD [address] [place] [phone] [facility]11/24/22Team MemberRelationshipSpecialtyStart DateEnd Date Margaret Blanco MD [address] [place] [address] PCP - [facility] Medicine11/24/22 Team Status: Inactive Member Role Status Dates Margaret Blanco MD Primary Care Provide r, Attending Provider Active Start: March 31, 2024 End: March 31, 2024 Team Status: Inactive Member Role Status Dates Margaret Blanco MD Primary Care Provide r, Attending Provider Active Start: June 08, 2024 End: June 08, 2024Team MemberRelationshipSpecialtyStart DateEnd Date Margaret Blanco MD [address] [place] [address] PCP - GeneralFamily Medicine11/24/22Team MemberRelationshipSpecialtyStart DateEnd Date Margaret Blanco MD [address] [place] [address] PCP - GeneralFamily Medicine11/24/22Team MemberRelationshipSpecialtyStart DateEnd Date Margaret Blanco MD [address] [place] [address] PCP - Generalmily Medicine11/24/22Team MemberRelationshipSpecialtyStart DateEnd Date Margaret Blanco MD [address] [place] [address] [facility] - [facility]11/24/22 Team Status: Inactive Member Role Status Dates Margaret Blanco MD Primary Care Provider Active Start: October 18, 2024 End: October 18, 2024Jaiden Nichols ProviderActiveStart: October 18, 2024 End: October 18, 2024 Team Status: Active Member Role/Relationship Status Dates Margaret Blanco MD Primary Care Provider Active Team Status: Inactive Member Role/Relationship Status Dates Margaret Blanco MD Primary Care Provider Active Start: October 18, 2024 End: October 18, 2024Jaiden Nichols ProviderActiveStart: October 18, 2024 End: October 18, 2024 Team Status: Inactive Member Role/Relationship Status Dates Margaret Blanco MD Primary Care Provider Active Start: December 19, 2024 End: December 19, 2024Jaiden Nichols ProviderActiveStart: December 19, 2024 End: December 19, 2024 Team Status: Inactive Member Role/Relationship Status Dates Margaret Blanco MD Primary Care Provider Active Start: January 02, 2025 End: January 02, 2025Marcia E Blanco , MDAttending ProviderActiveStart: January 02, 2025 End: January 02, 2025 Goals (unrecognized section and content) Goals may be documented in a n alternate section FOR RECORDS PERTAINING TO PATIENTS WHO ARE OR HAVE BEEN ENROLLED IN A CHEMICAL DEPENDENCY/SUBSTANCEABUSE PROGRAM, SOME INFORMATION MAY BE OMITTED. This clinical summary was aggregated from multiple sources. Caution should be exercised in using it in the provision of clinical care. This summary normalizes information from multiple sources, and as a consequence, information in this document may materially change the coding, format and clinical context of patient data. In addition, data may be omitted in some cases. CLINICAL DECISIONS SHOULD BE BASED ON THE PRIMARY CLINICAL RECORDS. [facility] [employer] [facility]. provides no warranty or guarantee of the accuracy or completeness of information in this document.
== END 2025-02-08 09:54 | disposition home or self-care (01) ==
LOC: RAD 09:55
PROVIDERS: PCP Family Medicine; Visit Provider Orthopaedic Surgery
DX: M85.89 Other specified disorders of bone density and structure, multiple sites (principal)
CPT/HCPCS: 77080

== ENCOUNTER 2025-02-11 15:59 | Emergency (ER) | payer MEDICARE, OTHER, SELFPAY ==
[2025-02-11 16:06] VITALS: BP 175/100; PULSE 63; TEMP 36.4; O2SAT 97; BMI 26.6
[2025-02-11] MEDS: FLUORESCEIN SODIUM 1 MG STRIP OP (16:20)
[2025-02-11] MEDS: TETRACAINE HCL 0.5% OP SOL 80 DROP/4 ML BOTTLE OP (16:20)
--- OUTSIDE RECORDS SUMMARY | 2025-02-11 16:42 | XMS_ITS | Clinical Summary ---
Author Organization [facility] Address [address] [place] [place] [address] Care Team Providers Care Coordinator Of Online Programs Name Role Phone Margaret Bhandari MD Primary Care Provider [phone] Allergies Active AllergyReactionsCriticalityNoted DateCommentsIodinated Contrast Media 11/24/2022 Other Reaction(s): Unknown Fjsxpu6706/25/20052876Coqua83/26/9011XwdberqyfsweCyhrm01/26/2006 Other Reaction(s): Unknown Sulfamethoxazole-Zpzjgehrgyue44/25/2023 Medications MedicationSigDispense QuantityRefillsLast FilledStart DateEnd DateStatus phentermine (Adipex-P) 37.5 MG tablet Take 37.5 mg by mouth Daily4Active valACYclovir (Valtrex) 1 g tablet Indications:Herpesviral vesicular dermatitisTake 2 tablets twice a day x 1 day at first start of outbreak, 1 day supply 4 tablet 5Active Additional Information Patient not taking.Reported on 01/25/2025 tacrolimus (Protopic) 0.1 % ointment Indications:Other atopic dermatitisApply 0.5 grams to the face, twice a day when flared, 30 day supply 30 g 1105Active Additional Information Patient not taking.Reported on 01/25/2025 celecoxib (CeleBREX) 200 MG capsule Indications:Left knee pain, unspecified chronicity,Primary osteoarthritis of left kneeTake 1 capsule (200 mg) by mouth Daily 30 capsule 5ActiveHospital, Clinic, or Other Facility Administered MedicationOrdered DoseRouteFrequencyStart DateEnd DateStatus betamethasone acetate-betamethasone sodium phosphate (Celestone) injection 1 mL Indications:Left knee pain, unspecified chronicity1 mLIXOnce PRN Procedure 5103/27/2024Ended Active Problems ProblemNoted DateDiagnosed DateAxillary mass, qmzitfwlz09/05/2024 Encounters DateTypeDepartmentCare CbeaAijtkcyiaoq30/26/2025 1:30 PM ESTOffice Visit [facility] [address] [place] [phone] Antonio Valentine DO Left knee pain, unspecified chronicity (Primary Dx); Primary osteoarthritis of left knee; Osteopenia of the dgbbxkj4701/25/2025 11:05 AM ESTAncillary Procedure [facility] [address] [place] [address] 01/25/2025Travelfrom Last 3 Months Family History Medical HistoryRelationNameCommentsHeart diseaseFatherBud BressonCancerMaternal GrandmotherGrace McComasHearing lossMaternal GrandmotherGrace Jaquelin OsteoporosisMaternal GrandmotherGrace McComasAnesthesia problemsMotherEdith SnyderCancerMotherEdith SnyderCancerSisterLinda CatroneRelationNameStatus CommentsFatherBud BressonAliveMaternal GrandmotherGrace McComasMotherEdith SnyderSisterLinda Catrone Social History Tobacco UseTypesPacks/DayYears UsedDateSmoking Tobacco: NeverSmokeless Tobacco: Never Tobacco Cessation:Counseling Given: Not Answered Alcohol UseStandard Drinks/WeekCommentsYes1 (1 standard drink = 0.6 oz pure alcohol)Very rarely drink more than 1AUDIT-CAnswerDate RecordedQ1: How often do you have a drink containing alcohol?2-4 times a month05/05/2023Q2: How many drinks containing alcohol do you have on a typical day when you are drinking?1 or Q3: How often do you have six or more drinks on one occasion?Never 4CommentsUnknownSex and Gender InformationValueDate RecordedSex Assigned at CfjsnIxsjck83/26/2023 4:26 PM EDTLegal BjqWrmavl54/15/2023 6:57 PM EDTGender WbjzjfvqVuohhk28/26/2023 4:26 PM EDTSexual OrientationStraight 09/24/2022 4:26 PM EDT Last Filed Vital Signs Vital SignReadingTime TakenCommentsBlood Yoaruied618/8803 11:00 AM EST Pulse--Rycqlfqgkit55.8 ??C (98.3 ??F)04/01/2023 10:32 AM ESTRespiratory Rate-- Oxygen Saturation--Inhaled Oxygen Concentration--Aslbna17.6 kg (186 lb 9.6 oz) 01/25/2025 1:28 PM IGYYuplhr543 cm (5' 8.5 )01/25/2025 1:28 PM ESTBody Mass Index27.9601/25/2025 1:28 PM EST Plan of Treatment DateTypeDepartmentCare Team (Latest Contact Info)Rpanbyzqsax87/22/2025 10:00 AM ESTOffice Visit [facility] [address] [facility] [phone] Antonio Valentine DO [address] [place] [address] 03/06/2025 11:20 AM ESTOffice Visit [facility] [address] [address] Jorge Dasilva DO [address] [place] [place], [place] [phone] 06/28/2025 11:15 AM EDTOffice Visit [facility] [place] [facility] [address] [place] [phone] Mary Russell MD [address] [place] [address] 12/18/2025 10:30 AM EDTOffice Visit [facility] [address] [place] [phone] Antonio Valentine, DO [address] [place] [place] [address] Procedures Procedure NamePriorityDate/TimeAssociated DiagnosisCommentsPR ARTHROCENTESIS ASPIR&/INJ MAJOR JT/BURSA W/O UCYsjcgko21/26/2025 2:00 PM EST Left knee pain, unspecified chronicity XR KNEE 3 VIEWS GQNCPsubaxj14/26/2025 11:04 AM EST Left knee pain, unspecified chronicity from Last 3 Months Results * TN ARTHROCENTESIS ASPIR&/INJ MAJOR JT/BURSA W/O US (01/25/2025 2:00 PM EST) Narrative Radhika Becerril MA - 01/25/2025 2:00 PM EST Radhika Becerril MA 01/30/2025 7:23 AM L Inj/Asp: L knee on 01/25/2025 2:00 PM Indications: pain Details: 22 G needle Medications: 1 mL betamethasone acetate-betamethasone sodium phosphate 6 (3-3) MG/ML Authorizing ProviderResult TypeResult StatusDavid A Meme [facility]/BEDSIDE ORDERABLESFinal Result * XR knee 3 views left (01/25/2025 11:04 AM EST)Anatomical RegionLaterality ModalityLower Extremities, KneeLeftRadiographic ImagingSpecimen (Source) Anatomical Location / LateralityCollection Method / VolumeCollection Time Received Time Narrative 01/30/2025 7:25 AM EST Imaging Result: X-rays are done here today AP bilateral weight bearing, bilateral sunrise, left lateral knee total of five views with permanent images are saved to the record and does show what appears to be moderate to severe medial osteoarthritis bilaterally. ?? She still has some articular space remaining. ?? No evidence of fracture or other osseous abnormality. ? Authorizing ProviderResult TypeResult StatusDavid A Pocos DOIMG XR PROCEDURES Final Result from Last 3 [place] [phone] Care Teams Team MemberRelationshipSpecialtyStart DateEnd Date Margaret Bhandari MD [address] [facility] [place] [address] PCP - GeneralFamily Medicine11/24/22
--- OUTSIDE RECORDS SUMMARY | 2025-02-11 16:42 | XMS_ITS | Clinical Summary ---
Author Organization [facility] Address [address] [place] [address] Care Team Providers Care Facility Sales And Admin Name Role Phone Vince Guillory Primary Care Provider [phone] Allergies Active AllergyReactionsCriticalityNoted DateCommentsPropoxyphene Hcl06/25/2005 Kssyva5506/25/2005no latex allergy [Other]06/25/2005 Medications MedicationSigDispense QuantityRefillsLast FilledStart DateEnd DateStatus PREMPRO 0.625 MG-2.5 MG TAB Take one(1) tablet daily.ctive ibuprofen(MOTRIN 600 MG TAB) Take one(1) tablet every six(6) hours as needed for pain, with food. Active Active Problems ProblemNoted DateDiagnosed DateMixed conductive and sensorineural hearing loss 08/06/2005Sensorineural hearing loss, nekdfwzti93/26/2006 Family History Medical HistoryRelationCommentsCancerMaternal GrandmotherStrokeMaternal GrandmotherAllergiesMotherHeartMotherRelationStatusCommentsMaternal Grandmother Mother Social History Tobacco UseTypesPacks/DayYears UsedDateSmoking Tobacco: NeverAlcohol UseStandard Drinks/WeekCommentsNo0 (1 standard drink = 0.6 oz pure alcohol)Comments NoSex and Gender InformationValueDate RecordedSex Assigned at BirthNot on file Legal ZntJhhfhu72/02/2012 10:03 AM ESTGender IdentityNot on fileSexual OrientationNot on file Last Filed Vital Signs Vital SignReadingTime TakenCommentsBlood Vczplbzs598/7804 1:15 PM EDT Qjxyp2945/26/2006 1:15 PM PJNUkfauokayck42.9 ??C (98.4 ??F)06/25/2005 1:15 PM EDTRespiratory Rate--Oxygen Saturation--Inhaled Oxygen Concentration--Hrbpnn21.4 kg (175 lb)06/25/2005 1:15 PM FFAHbgafk144.3 cm (5' 9 )06/25/2005 1:15 PM EDT Body Mass Index25.8406/25/2005 1:15 PM EDT Plan of Treatment Health MaintenanceDue DateLast DoneCommentsAnxiety Pemxrwcfu19/27/1972Depression Kimupzydr69/27/1972Hepatitis C Xcqcnrvbi90/27/1972DTaP,Tdap,Td Vaccine (1 - Tdap)1972Mammogram Hpozxkxto55/27/1994CT Lmzvvsuqmejq41/27/1999Cologuard (FIT-DNA)04/28/19983254Hbogfyhhtfl27/27/1999Colorectal Cancer Ellooadbd90/27/1999 Diabetes Fdoplkyzu02/27/1999Fecal Occult Blood1998Lipid Screening 04/28/19987824Mhmutnhhapcvd67/27/1999Pneumococcal Vaccine: 50+ (1 of 1 - PCV) 2003Shingrix Vaccine (1 of 2)2003Bone Density Wnrlmsxkn22/27/2019 Advance Directive Snexrpcwsj61/01/2025ovid-19 Vaccine (1 - 2024- season) 2024Influenza Vaccine (#1)2024RSV Vaccine (1 - 1-dose 75+ series) 2028 Insurance MemberSubscriberPlan / Payer (Effective 2003-Present)Name:Yohana Nesbitt Relation to Subscriber:SpouseName:SAI NESBITT Date of :1953 (Home) Address: [address] [place] [address] [place] [address] Payer ID:[id number] (NAIC) Type:Indemnity Address: [facility] [id number] [place] [id number] Care Teams Team MemberRelationshipSpecialtyStart DateEnd Date Vince Guillory [address] [place] [address] PCP - General07/20/03
--- NOTE | 2025-02-11 16:47 | ED_ITS ---
HPI - Eye Problem General Chief complaint: Eye Problems Stated complaint: Foreign in EYE Time Seen by Provider: 02/11/25 16:06 Source: patient Mode of arrival: walk-in Limitations: no limitations History of Present Illness HPI Narrative: 69-year-old female presents to the emergency room chief complaint of possible contact in the left eye. Patient states she put the contacts in yesterday woke this morning and felt a stabbing sensation to her eye and does not believe it is in. She thought it might have removed. She is rubbing her eye continuously while here in the emergency room initially. Related Data Home Medications ?Medication ?Instructions ?Recorded ?Confirmed celecoxib 200 mg capsule mg 02/11/25 Previous Rx's ?Medication ?Instructions ?Recorded ketorolac 0.5 % eye drops (Acular) 1 drp ophthalmic (e ye) Q6H PRN 02/11/25 pain #5 mL tobramycin 0.3 % eye drops 1 drp ophthalmic (eye) Q4H 5 days 02/11/25 #5 mL Allergies Allergy/AdvReac Type Severity Reaction Status Date / Time Sulfa (Sulfonamide Allergy Unknown Verified 02/11/25 16:09 Antibiotics) IV contrast Allergy Unknown Uncoded 02/11/25 16:09 Review of Systems ROS Status of ROS 10 or more systems reviewed and unremark able except as noted in history and below PFSH PFSH Social History Little interest or pleasure in doing things: not at all Feeling down, depressed, or hopeless: not at all Exam Narrative Exam Narrative: All Systems are negative except as noted/marked.All systems reviewed and otherwise negative Nurses note and vital signs reviewed and patient is not hypoxic. General: The patient appears well and in no apparent distress. Patient is resting comfortably on cart. Skin: Warm, dry, no pallor noted. There is no rash noted. Head: Normocephalic, atraumatic Eye: Left conjunctive is red and injected small corneal abrasion noted to the center of the eye no acute foreign body other than contact was noted and removed, right normal conjunctiva, no drainage, EOMI. PERRL Ears, Nose, Mouth, and Throat: oral mucosa is moist. Nares patent. Mouth without vesicles. Ear canals patent. Tm's without Erythema Cardiovascular: Regular Rate and Rhythm Respiratory: Patient is in no distress, no accessory muscle use, lungs are clear to auscultation, no wheezing, rales or rhonchi Neurological: A&O x4, normal speech Psychiatric: Cooperative Constitutional Vital Signs, click to edit/add: Last Vital Signs Temp 97.6 F 02/11/25 16:06 Pulse 63 02/11/25 16:06 Resp 18 02/11/25 16:06 BP 175/100 H 02/11/25 16:06 Pulse Ox 97 02/11/25 16:06 O2 Del Method Room Air 02/11/25 16:06 Course Vital Signs Vital signs: Vital Signs Temperature 97.6 F 02/11/25 16:06 Pulse Rate 63 02/11/25 16:06 Respiratory Rate 18 02/11/25 16:06 Blood Pressure 175/100 H 02/11/25 16:06 Pulse Oximetry 97 02/11/25 16:06 Oxygen Delivery Method Room Air 02/11/25 16:06 Temperature 97.6 F 02/11/25 16:06 Pulse Rate 63 02/11/25 16:06 Respiratory Rate 18 02/11/25 16:06 Blood Pressure 175/100 H 02/11/25 16:06 Pulse Oximetry 97 02/11/25 16:06 Oxygen Delivery Method Room Air 02/11/25 16:06 MDM - Eye Problem MDM Narrative Medical decision making narrative: 69-year-old female presents to the emergency room chief complaint of possible contact in the left eye. Patient states she put the contacts in yesterday woke this morning and felt a stabbing sensation to her eye and does not believe it is in. She thought it might have removed. She is rubbing her eye continuously while here in the emergency room initially. Left eye was anesthetized with tetracaine flushed with Dacriose solution upper eyelid was examined no acute foreign body was noted initially once stain was placed in the eye we contacted rolled around on top of the eye itself where it is supposed to be and then was easily removed. Small corneal abrasion is detected on exam. Patient will be sent home with Acular and Tobrex. Follow-up with my eye doctor on Thursday. Differential Diagnosis Differential diagnosis: Likely corneal abrasion, conjunctivitis, acute iritis and hyphema Medical Records Attestation: I reviewed the patient's medical records. Discharge Plan Discharge Chief Complaint: Eye Problems Clinical Impression: Corneal abrasion, Foreign body in eye Patient Disposition: Home, Self-Care Time of Disposition Decision: 16:43 Condition: Good Prescriptions / Home Meds: New ketorolac [Acular] 0.5 % drops 1 drp ophthalmic (eye) Q6H PRN (Reason: pain) Qty: 5 0RF tobramycin 0.3 % drops 1 drp ophthalmic (eye) Q4H 5 Days Qty: 5 0RF No Action celecoxib 200 mg capsule Print Language: Japanese Instructions: Corneal Abrasion (ED), Eye Foreign Body (ED) Additional Instructions: follow up with rachel on thursday Referrals: Margaret Bhandari MD [Primary Care Provider, Family Practice] - 1 week
[2025-02-11 17:02] VITALS: BP 152/89; PULSE 74; O2SAT 99
== END 2025-02-11 17:02 | disposition home or self-care (01) ==
PROVIDERS: Emergency Provider Emergency Medicine; PCP Family Medicine
DX: H18.822 Corneal disorder due to contact lens, left eye (principal)
CPT/HCPCS: 99283